=== PATIENT | male | born 1945 | race Caucasian/White ===

== ENCOUNTER 2020-06-14 10:57 | Outpatient (REF) | payer MEDICARE, OTHER, SELFPAY ==
[2020-06-14 11:30] LABS: MANUAL DIFF FLAG NO
[2020-06-14 11:47] LABS: Eosinophils Absolute Auto 0.3 X10*3/uL (0.0-0.4); Eosinophils Percent Auto 7.6 % (0-4); Hematocrit 43.8 % (42-52); Hemoglobin 14.1 g/dl (14.0-18.0); Imm Gran Abs Auto 0.01 X10*3/uL (0.00-0.03); Imm Gran Pct Auto 0.2 % (0.0-0.4); Lymphocytes Absolute Auto 1.3 X10*3/uL (1.2-4.9); Lymphocytes Percent Auto 31.2 % (20-40); Mean Corpuscular HGB Conc 32.2 g/dl (31.0-36.0); Mean Corpuscular Volume 93.2 fL (80-98); Mean Platelet Volume 11.4 fL (9.4-12.4); Monocytes Absolute Auto 0.5 X10*3/uL (0.1-1.2); Monocytes Percent Auto 12.7 % (2-11); Neutrophils Absolute Auto 1.9 X10*3/uL (2.0-8.3); Neutrophils Percent Auto 47.3 % (45-73); Platelet Count 159 X10*3/uL (160-400); Red Cell Distribution Width 14.5 % (11.0-16.0); White Blood Count 4.1 X10*3/uL (4.8-10.8)
[2020-06-14 12:19] LABS: Glucose Urine UA NEG (NEG); Leukocyte Esterase Urine NEG (NEG); Nitrite Urine NEG (NEG); Urine Blood NEG (NEG); Urine Ketones NEG (NEG); Urine Protein NEG (NEG-TRACE)
[2020-06-14 12:20] LABS: Alanine Aminotransferase 17 U/L (0-40); Albumin Level 4.2 g/dL (3.5-5.0); Alkaline Phosphatase 63 U/L (39-117); Anion Gap 13 (12-20); Aspartate Amino Transferase 22 U/L (5-37); Bilirubin Total 1.2 mg/dL (0.0-1.0); Blood Urea Nitrogen 12 mg/dL (9-16); Carbon Dioxide 28 mmol/L (22-29); Chloride 104 mmol/L (96-108); Cholesterol 215 mg/dL; Estimated Glomerular Filt Rate > 60; Glucose Fasting 86 mg/dL (60-99); HDL Cholesterol 73 mg/dL; LDL Cholesterol Calculated 126 mg/dl; Sodium 141 mmol/L (135-145); Total Protein 7.5 g/dL (6.5-8.0); Triglycerides 80 mg/dL
[2020-06-14 12:24] LABS: Appearance Urine CLEAR; Color Urine YELLOW
[2020-06-14 12:34] LABS: PSA,Total (Free>4and<10) 0.19 ng/mL (0.00-4.00)
== END 2020-06-14 10:58 | disposition home or self-care (01) ==
LOC: HO.LNP 10:57
PROVIDERS: PCP Internal Medicine; Visit Provider Internal Medicine
DX: R09.89 Other specified symptoms and signs involving the circulatory and respiratory systems (principal); I10 Essential (primary) hypertension; E78.00 Pure hypercholesterolemia, unspecified; Z12.5 Encounter for screening for malignant neoplasm of prostate
CPT/HCPCS: 80053; 80061; 81003; 84153; 85025

== ENCOUNTER 2021-06-02 10:50 | Outpatient (REF) | payer MEDICARE, OTHER, SELFPAY ==
--- NOTE | ~2021-06-02 | MR_ITS ---
EXAMINATION: MRI BRAIN WITHOUT CONTRAST CLINICAL INFORMATION: Facial and hand numbness. COMPARISON: No relevant prior imaging. TECHNIQUE: Multiplanar MR imaging of the brain was performed without contrast. FINDINGS: There are scattered foci of T2 FLAIR signal hyperintensity within the periventricular white matter that most likely represent a chronic manifestation of small vessel ischemia. No acute territorial infarct. No pathological magnetic susceptibility artifact. Intracranial vascular flow voids are grossly maintained. There is no intracranial mass effect or midline shift. No abnormal extra axial collection. Lateral and third ventricles are proportionate to the subarachnoid spaces. No hydrocephalus. Midline structures including the cervicomedullary junction are normal. No acute bone marrow signal changes. There is no mastoid or middle ear effusion. No active paranasal sinus disease. Globes and orbits are symmetric. MR/MR head/brain wo con IMPRESSION: There are scattered chronic small vessel ischemic changes within the periventricular white matter. Otherwise unremarkable examination. No evidence of acute territorial infarct or hemorrhage.
[2021-06-02 11:00] LABS: Blood Urea Nitrogen 13 mg/dL (9-16)
[2021-06-02 11:17] LABS: Estimated Glomerular Filt Rate > 60
== END 2021-06-02 10:51 | disposition home or self-care (01) ==
LOC: HO.MRI 10:50
PROVIDERS: PCP Internal Medicine; Visit Provider Internal Medicine
DX: Z01.812 Encounter for preprocedural laboratory examination (principal); R20.0 Anesthesia of skin; I10 Essential (primary) hypertension
CPT/HCPCS: 36415; 70551; 82565; 84520

== ENCOUNTER 2021-06-24 10:43 | Outpatient (REF) | payer MEDICARE, OTHER, SELFPAY ==
[2021-06-24 10:47] LABS: MANUAL DIFF FLAG NO
[2021-06-24 10:59] LABS: Basophils Absolute Auto 0.1 X10*3/uL (0.0-0.2); Basophils Percent Auto 1.1 % (0-2); Eosinophils Absolute Auto 0.4 X10*3/uL (0.0-0.4); Eosinophils Percent Auto 7.6 % (0-4); Hemoglobin 13.2 g/dl (14.0-18.0); Imm Gran Abs Auto 0.01 X10*3/uL (0.00-0.03); Imm Gran Pct Auto 0.2 % (0.0-0.4); Lymphocytes Absolute Auto 1.2 X10*3/uL (1.2-4.9); Lymphocytes Percent Auto 21.9 % (20-40); Mean Corpuscular Hemoglobin 30.5 pg (27.0-33.0); Mean Corpuscular Volume 92.4 fL (80.0-98.0); Mean Platelet Volume 11.1 fL (9.4-12.4); Monocytes Absolute Auto 0.8 X10*3/uL (0.1-1.2); Monocytes Percent Auto 14.7 % (2-11); Neutrophils Absolute Auto 2.9 x10*3/uL (2.0-8.3); Neutrophils Percent Auto 54.5 % (45-73); Platelet Count 188 X10*3/uL (160-400); Red Blood Count 4.33 X10*6/uL (4.60-5.80); Red Cell Distribution Width 13.8 % (11.0-16.0); White Blood Count 5.2 X10*3/uL (4.8-10.8)
[2021-06-24 11:00] LABS: Appearance Urine HAZY; Color Urine YELLOW; Glucose Urine UA NEG (NEG); Leukocyte Esterase Urine NEG (NEG); Nitrite Urine NEG (NEG); Urine Blood NEG (NEG); Urine Ketones NEG (NEG); Urine Protein NEG (NEG-TRACE)
[2021-06-24 11:13] LABS: Alanine Aminotransferase 16 U/L (0-40); Albumin Level 4.2 g/dL (3.5-5.0); Alkaline Phosphatase 60 U/L (39-117); Anion Gap 11 (12-20); Aspartate Amino Transferase 23 U/L (5-37); Bilirubin Total 1.5 mg/dL (0.0-1.0); Blood Urea Nitrogen 14 mg/dL (9-16); Calcium 9.3 mg/dL (8.4-10.2); Carbon Dioxide 27 mmol/L (22-29); Chloride 100 mmol/L (96-108); Cholesterol 208 mg/dL; Estimated Glomerular Filt Rate > 60; Glucose Fasting 86 mg/dL (60-99); HDL Cholesterol 75 mg/dL; LDL Cholesterol Calculated 122 mg/dl; Potassium 3.8 mmol/L (3.3-5.1); Sodium 134 mmol/L (135-145); Total Protein 7.3 g/dL (6.5-8.0); Triglycerides 57 mg/dL
[2021-06-24 11:28] LABS: PSA,Total (Free>4and<10) 0.19 ng/mL (0.00-4.00)
== END 2021-06-24 10:44 | disposition home or self-care (01) ==
LOC: HO.LNP 10:43
PROVIDERS: Visit Provider Internal Medicine
DX: Z12.5 Encounter for screening for malignant neoplasm of prostate (principal); E78.00 Pure hypercholesterolemia, unspecified; I10 Essential (primary) hypertension
CPT/HCPCS: 80053; 80061; 81003; 84153; 85025

== ENCOUNTER 2022-06-27 10:54 | Outpatient (REF) | payer MEDICARE, OTHER, SELFPAY ==
[2022-06-27 11:00] LABS: MANUAL DIFF FLAG NO
[2022-06-27 11:53] LABS: Appearance Urine Clear; Color Urine Yellow; Glucose Urine UA Negative (Negative); Leukocyte Esterase Urine Negative (Negative); Nitrite Urine Negative (Negative); PH 6.5 (5.0-9.0); Specific Gravity - Urine 1.015 (1.005-1.025); Urine Blood Negative (Negative); Urine Ketones Negative (Negative); Urine Protein Negative (Neg-Trace)
[2022-06-27 11:57] LABS: Bacteria Urine None Seen (None Seen); Hyaline Casts Urine 0-2 /LPF (0-2); RBC Urine 0-2 /HPF (0-2); Squamous Epithelial Cell Urine 0-2 /HPF (0-2); WBC Urine 0-5 /HPF (0-5)
[2022-06-27 12:02] LABS: Basophils Absolute Auto 0.1 X10*3/uL (0.0-0.2); Basophils Percent Auto 1.5 % (0-2); Eosinophils Absolute Auto 0.3 X10*3/uL (0.0-0.4); Eosinophils Percent Auto 7.1 % (0-4); Hematocrit 41.7 % (42.0-52.0); Hemoglobin 13.8 g/dl (14.0-18.0); Imm Gran Abs Auto 0.01 X10*3/uL (0.00-0.03); Imm Gran Pct Auto 0.3 % (0.0-0.4); Lymphocytes Percent Auto 25.8 % (20-40); Mean Corpuscular HGB Conc 33.1 g/dl (31.0-36.0); Mean Corpuscular Hemoglobin 29.5 pg (27.0-33.0); Mean Corpuscular Volume 89.1 fL (80.0-98.0); Mean Platelet Volume 10.9 fL (9.4-12.4); Monocytes Absolute Auto 0.6 X10*3/uL (0.1-1.2); Monocytes Percent Auto 15.9 % (2-11); Neutrophils Percent Auto 49.4 % (45-73); Platelet Count 182 X10*3/uL (160-400); Red Blood Count 4.68 X10*6/uL (4.60-5.80); Red Cell Distribution Width 14.5 % (11.0-16.0)
[2022-06-27 13:02] LABS: Alanine Aminotransferase 17 U/L (0-40); Albumin Level 4.1 g/dL (3.5-5.0); Alkaline Phosphatase 65 U/L (39-117); Anion Gap 12 (12-20); Aspartate Amino Transferase 24 U/L (5-37); Bilirubin Total 1.5 mg/dL (0.0-1.0); Blood Urea Nitrogen 12 mg/dL (9-16); Calcium 9.2 mg/dL (8.4-10.2); Carbon Dioxide 26 mmol/L (22-29); Chloride 101 mmol/L (96-108); Cholesterol 188 mg/dL; Estimated Glomerular Filt Rate > 60; Glucose Fasting 88 mg/dL (60-99); HDL Cholesterol 70 mg/dL; LDL Cholesterol Calculated 108 mg/dl; PSA,Total (Free>4and<10) 0.21 ng/mL (0.00-4.00); Potassium 4.4 mmol/L (3.3-5.1); Sodium 135 mmol/L (135-145); TSH reflex Free T4 4.81 uIU/mL (0.32-4.0); Total Protein 7.1 g/dL (6.5-8.0); Triglycerides 50 mg/dL
[2022-06-27 14:56] LABS: Free T4 (Free Thyroxine) 1.04 ng/dL (0.71-1.85)
== END 2022-06-27 10:55 | disposition home or self-care (01) ==
LOC: HO.LNP 10:54
PROVIDERS: Visit Provider Internal Medicine
DX: Z12.5 Encounter for screening for malignant neoplasm of prostate (principal); E78.00 Pure hypercholesterolemia, unspecified; I10 Essential (primary) hypertension
CPT/HCPCS: 80053; 80061; 81001; 84153; 84439; 84443; 85025

== ENCOUNTER → 2022-08-24 12:39 | Outpatient (BNVA) | payer MEDICARE, OTHER, SELFPAY | PROVIDERS: Visit Provider Internal Medicine | DX: I48.91 Unspecified atrial fibrillation (principal); I10 Essential (primary) hypertension | CPT/HCPCS: 93005; 99202 ==

== ENCOUNTER 2022-09-01 13:17 | Outpatient (REF) | payer MEDICARE, OTHER, SELFPAY ==
[2022-09-01 13:19] LABS: MANUAL DIFF FLAG NO
[2022-09-01 13:29] LABS: Basophils Absolute Auto 0.1 X10*3/uL (0.0-0.2); Basophils Percent Auto 1.4 % (0-2); Eosinophils Absolute Auto 0.2 X10*3/uL (0.0-0.4); Eosinophils Percent Auto 5.3 % (0-4); Hematocrit 40.3 % (42.0-52.0); Hemoglobin 13.3 g/dl (14.0-18.0); Imm Gran Abs Auto 0.01 X10*3/uL (0.00-0.03); Imm Gran Pct Auto 0.2 % (0.0-0.4); Lymphocytes Absolute Auto 0.9 X10*3/uL (1.2-4.9); Lymphocytes Percent Auto 20.8 % (20-40); Mean Corpuscular Hemoglobin 30.1 pg (27.0-33.0); Mean Corpuscular Volume 91.2 fL (80.0-98.0); Mean Platelet Volume 10.9 fL (9.4-12.4); Monocytes Absolute Auto 0.6 X10*3/uL (0.1-1.2); Monocytes Percent Auto 14.2 % (2-11); Neutrophils Absolute Auto 2.6 x10*3/uL (2.0-8.3); Neutrophils Percent Auto 58.1 % (45-73); Platelet Count 156 X10*3/uL (160-400); Red Blood Count 4.42 X10*6/uL (4.60-5.80); Red Cell Distribution Width 14.6 % (11.0-16.0); White Blood Count 4.4 X10*3/uL (4.8-10.8)
== END 2022-09-01 13:18 | disposition home or self-care (01) ==
LOC: HO.LNP 13:17
PROVIDERS: Visit Provider Internal Medicine
DX: D72.821 Monocytosis (symptomatic) (principal)
CPT/HCPCS: 85025

== ENCOUNTER → 2022-09-20 12:54 | Outpatient (REF) | payer MEDICARE, OTHER, SELFPAY ==
--- NOTE | 2022-09-20 12:58 | CA_ITS ---
Transthoracic Echocardiogram Patient (Last, First, Middle): Kevin Neil P Gender: Male Date of : 1945 Age: 77 Procedure Date: 09/20/2022 Procedure Type: Transthoracic Echocardiogram Location: OP Height: 205.74 cm Weight: 65.77 kg BSA: 2.02 m2 Heart Rate: 83 bpm BP: 124 / 70 mmHg Cotton Ball Machine Tender: SB Referring MD: Jean Pierre Clinton MD Symptoms: I48.91 - Unspecified atrial fibrillation Study Quality: Adequate ECG Rhythm: Atrial Fibrillation Conclusions: - The left ventricular systolic function is normal. The visually estimated ejection fraction is between 65-70%. - No obvious valvular pathology seen on this study. Findings Left Ventricle Normal left ventricular cavity size. There is normal left ventricular wall thickness. The left ventricular systolic function is normal. The visually estimated ejection fraction is between 65-70%. There is no evidence of regional wall motion abnormalities. Diastolic function is indeterminate on the basis of available data. Right Ventricle Normal right ventricular cavity size and systolic function. Atria The left atrium is normal in size. The right atrium is mildly dilated. Aortic Valve There is a normal trileaflet aortic valve. There is no aortic valve stenosis. There is no aortic valve regurgitation. Mitral Valve The mitral valve appears normal. There is no mitral valve regurgitation. There is no mitral valve stenosis. Pulmonic Valve The pulmonic valve is likely normal. Tricuspid Valve There is mild tricuspid valve regurgitation. Mild pulmonary hypertension is present. Great Vessels The asc aorta is normal in size. Venous The inferior vena cava is mildly dilated and collapses less than 50% with inspiration. Pericardium/Pleural There is no evidence of pericardial effusion. Prior Study Comparison No significant change compared to prior study dated: 04/13/2017. Recommendations, Care & Conclusions No obvious valvular pathology seen on this study. Measurements 2D Linear Measurements IVSd: 0.65 0.6-0.9/0.6-1.0 cm LVIDd: 3.63 3.9-5.3/4.2-5.9 cm LVIDd Index: 1.80 2.4-3.2/2.2-3.1 cm/m2 LVIDs: 2.15 2.0-3.6 cm LVPWd: 0.70 0.7-1.1 cm LA Diam: 3.70 2.7-3.8/3.0-4.0 cm LAIDs Index: 1.83 1.5-2.3 cm/m2 LV Mass: 79.17 67-162/88-224 g LV Mass Index: 39.19 43-95/49-115 g/m2 LVOT Diam: 2.00 3.0+(-)1.3 cm 2D Systolic Function EF 4C: 70.00 >55% EF 2C: 69.00 >55% EF BiP: 69.60 >55% Mitral Valve MV Pk E: 1.20 MV Decel Time: 165.00 E'Lateral: 10.10 E'Medial: 7.49 E/E' Med: 16.00 E/E' Lat: 11.90 Aortic Valve AoV Pk Kobe: 1.14 AoV Pk Grad: 5.00 IVY: 3.08 LVOT LVOT Pk Kobe: 1.12 LVOT Mn Kobe: 0.74 LVOT VTI: 0.21 LVOT Pk Grad: 5.00 LVOT Mn Grad: 3.00 LVOT Diam: 2.00 LVOT Area: 3.14 Diastolic Function MV Pk E: 1.20 E'Medial: 7.49 E/E' Med: 16.00 E' Laterial: 10.10 E/E' Lat: 11.90 Right Ventricle TAPSE (mm): 16.50 TVS' Kobe: 14.70 Tricuspid Valve TR Pk Kobe: 2.53 TR Pk Grad: 26.00 RA Press: 15.00 RVSP: 41.00 Great Vessels Aorta Sinus of Valsalva: 3.10 2.0-3.5 cm Ao Asc: 3.20 2.1-3.4 cm Pulmonary Valve PV Pk Kobe: 1.00 Peak PV Grad: 4.00 Updated in Other Vendor System with Status of Final Jean Pierre Clinton MD electronically signed on 09/21/2022 12:49:58 PM with status of Final
--- NOTE | 2022-09-20 12:58 | HM_ITS ---
* Total monitoring time 3 days. * Underlying rhythm is atrial fibrillation. Average ventricular rate 64/Min. Range 44 to 106/Min. * Rare PVCs. * Rare pauses; longest 2.7 seconds during sleep hours. * Patient diary with symptoms of chest discomfort, left-sided pain which correlates with controlled atrial fibrillation. * Overall, well controlled atrial fibrillation. MTDD
== END ==
LOC: HO.CARD 12:54
PROVIDERS: PCP Internal Medicine; Visit Provider Internal Medicine
DX: I48.91 Unspecified atrial fibrillation (principal)
CPT/HCPCS: 93242; 93306

== ENCOUNTER → 2022-09-20 12:58 | Outpatient (BNV) | payer MEDICARE, OTHER, SELFPAY | PROVIDERS: PCP Internal Medicine; Visit Provider Internal Medicine | DX: I48.91 Unspecified atrial fibrillation (principal) | CPT/HCPCS: 93244; 93306 ==

== ENCOUNTER 2022-12-14 15:18 | Outpatient (AMB) | payer MEDICARE, OTHER, SELFPAY ==
[2022-12-14 15:32] VITALS: BP 140/82; PULSE 74; BMI 20.6
--- NOTE | 2022-12-14 15:32 | A.OFFVIS_ITS ---
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 Today he reports he is noticing less heart bed palpitations now that he is on the metoprolol. He overall feels well with no concerning symptoms. He denies fatigue, shortness of breath, racing heart with activities. No chest discomfort at rest or with activity. No presyncope, syncope, falls. No PND, orthopnea or edema. He reports some coldness to his hands. He is mostly sedentary. He does have to climb some stairs in his home which he tolerates well. Lives with his who has MS. ALBERTO Medical History Essential hypertension Surgical History Hx of tonsillectomy Family History Father CHF (congestive heart failure) Mother Stroke Social History Alcohol intake: current Alcohol intake frequency: holidays/special occasions only Patient Tobacco Use Status: Former Tobacco user Quit Date: age of 19years Years Smoked: 2 +/- Review of Systems Const All systems reviewed & are unremarkable except as noted in HPI and below ENT Denies dizziness Card Denies chest pain, Denies chest pain at rest, Denies chest pain with activity, Denies rapid heart rate, Denies pedal edema, Denies edema, Denies leg edema, Denies lightheadedness, Denies palpitations, Denies dyspnea, Denies dyspnea on exertion and Denies orthopnea Resp Denies cough, Denies dyspnea and Denies dyspnea on exertion GI Denies hematochezia and Denies change in stool character Musc Denies abnormal gait, Denies limited range of motion, Denies muscle cramps, Denies muscle weakness, Denies numbness, Denies radiating pain into limb, Denies stiffness and Denies tingling Neuro Denies abnormal gait, Denies dizziness, Denies numbness and Denies tingling Endo Denies palpitations Physical Exam Vital Signs: Last Vital Signs Pulse 74 12/14/22 15:32 BP 140/82 H 12/14/22 15:32 BMI result Body Mass Index 20.6 Const General: cooperative, healthy appearing, comfortable and no acute distress Orientation/consciousness: patient oriented x3 Neck Neck: Yes normal visual inspection Resp Effort & Inspection: normal respiratory effort Auscultation: clear to auscultation bilaterally, no crackles, no rales, no rhonchi and no wheezes Cardio Jugular venous distension: no JVD Rate: regular rate Rhythm: abnormal rhythm Heart sounds: S1 normal heart sound present, S2 normal heart sound present, no murmurs and no rubs Neuro General: patient oriented x3 Extrem General: Yes normal to inspection and No no pedal edema Psych Appearance: grossly normal Mental Status: mental status grossly normal Speech and movement: Normal speech and movement present Assessment & Plan Assessment & Plan (1) Persistent atrial fibrillation: Code(s): I48.19 - Other persistent atrial fibrillation Plan: Newer, incidental finding of atrial fibrillation. Patient primarily asymptomatic. He could feel some palpitations which did improve after starting metoprolol. He is currently being treated with heart rate control. He was started on Eliquis for anticoagulation. No bleeding issues reported. An echocardiogram was done 09/20/2022 showing EF 65-70%, no valve abnormalities and no regional wall motion abnormalities. Holter monitor done 09/20/2022 for 3 days shows atrial fibrillation with average heart rate 64, heart rate range 44 to 106, longest pause 2.7 seconds during sleep hours, overall well controlled rate. Today he continues to deny fatigue, shortness of breath, palpitations. He admits to being mostly sedentary. Will continue with rate control strategy as he is tolerating this. Continue metoprolol XL 50 mg daily. Continue Eliquis 5 mg b.i.d. cardiology follow-up in 6 months, sooner if needed (2) Essential hypertension: Code(s): I10 - Essential (primary) hypertension Plan: Adequately controlled at present. Continue metoprolol. Low-salt diet reviewed. Coding Level of Care Code Est Pt Level 3 (80471) Diagnoses Persistent atrial fibrillation I48.19 Essential hypertension I10 Time Spent (min) 24
== END 2022-12-14 16:00 | disposition home or self-care (01) ==
PROVIDERS: PCP Internal Medicine; Visit Provider Nurse Practitioner Family
DX: I48.19 Other persistent atrial fibrillation (principal); I10 Essential (primary) hypertension
CPT/HCPCS: 99213

== ENCOUNTER → 2022-12-14 15:18 | Outpatient (BNVA) | payer MEDICARE, OTHER, SELFPAY | PROVIDERS: PCP Internal Medicine; Visit Provider Nurse Practitioner Family | DX: I48.19 Other persistent atrial fibrillation (principal); I10 Essential (primary) hypertension; Z79.01 Long term (current) use of anticoagulants; Z79.899 Other long term (current) drug therapy | CPT/HCPCS: 99212 ==

== ENCOUNTER 2023-06-25 13:50 | Outpatient (AMB) | payer MEDICARE, OTHER, SELFPAY ==
--- NOTE | 2023-06-25 14:07 | A.OFFVIS_ITS ---
Vital Signs 06/25/23 14:08 Height 5 ft 9 in Weight 147 lb 4.301 oz BMI 21.7 BP 134/82 Blood Pressure Location Lt brachial Position Sitting Pulse 71 Pulse Source Pulse Oximeter Intake Visit Reasons: 6 month follow up Stoker Installer Required: No Allergies contrast dye Adverse Reaction (Intermediate, Uncoded 06/25/23 14:10) Rash Medication List - Last Reconciled 06/25/23 by Funmilayo Recinos, BERNADETTE-C apixaban (Eliquis) 5 mg PO BID furosemide 20 mg PO DAILY metoprolol succinate ER (Toprol XL) 50 mg PO DAILY HPI HPI 6 month follow up: Details: Kevin is a 78-year-old male with past medical history of hypertension, persistent atrial fibrillation who presents for follow-up. Today he reports he has been feeling well with no concerning symptoms. He denies having heart palpitations. No chest discomfort at rest or with activity. No shortness of breath, PND, orthopnea or edema. No presyncope, syncope, falls. He reports good activity tolerance. No bleeding issues reported. Takes meds as directed. He is upcoming visit for labs and with his PCP. [facility] Medical History Essential hypertension Surgical History Hx of tonsillectomy Family History Father CHF (congestive heart failure) Mother Stroke Social History Alcohol intake: current Alcohol intake frequency: holidays/special occasions only Patient Tobacco Use Status: Former Tobacco user Quit Date: age of 19years Years Smoked: 2 +/- Review of Systems Const All systems reviewed & are unremarkable except as noted in HPI and below ENT Denies dizziness Card Denies chest pain, Denies chest pain at rest, Denies chest pain with activity, Denies rapid heart rate, Denies pedal edema, Denies edema, Denies leg edema, Denies lightheadedness, Denies palpitations, Denies dyspnea, Denies dyspnea on exertion and Denies orthopnea Resp Denies cough, Denies dyspnea and Denies dyspnea on exertion GI Denies hematochezia and Denies change in stool character Musc Denies abnormal gait, Denies limited range of motion, Denies muscle cramps, Denies muscle weakness, Denies numbness, Denies radiating pain into limb, Denies stiffness and Denies tingling Neuro Denies abnormal gait, Denies dizziness, Denies numbness and Denies tingling Endo Denies palpitations Physical Exam Vital Signs: Last Vital Signs Pulse 71 06/25/23 14:08 BP 134/82 06/25/23 14:08 BMI result Body Mass Index 21.7 Const General: cooperative, healthy appearing, comfortable and no acute distress Orientation/consciousness: patient oriented x3 Neck Neck: Yes normal visual inspection Resp Effort & Inspection: normal respiratory effort Auscultation: clear to auscultation bilaterally, no crackles, no rales, no rhonchi and no wheezes Cardio Jugular venous distension: no JVD Rate: regular rate Rhythm: abnormal rhythm Heart sounds: S1 normal heart sound present, S2 normal heart sound present, no murmurs and no rubs Neuro General: patient oriented x3 Extrem General: Yes normal to inspection and No no pedal edema Psych Appearance: grossly normal Mental Status: mental status grossly normal Speech and movement: Normal speech and movement present Assessment & Plan Assessment & Plan (1) Persistent atrial fibrillation: Code(s): I48.19 - Other persistent atrial fibrillation Category: Medical Plan: Newer, incidental finding of atrial fibrillation in 2022. Patient has been primarily asymptomatic. He initially could feel some palpitations which did improve after starting metoprolol. He is currently being treated with heart rate control. He was started on Eliquis for anticoagulation. No bleeding issues reported. An echocardiogram was done 09/20/2022 showing EF 65-70%, no valve abnormalities and no regional wall motion abnormalities. Holter monitor done 09/20/2022 for 3 days shows atrial fibrillation with average heart rate 64, heart rate range 44 to 106, longest pause 2.7 seconds during sleep hours, over all well controlled rate. Today he continues to feel well with no concerning symptoms. He is pleased with the way he is feeling. Discussed pursuing rhythm control and he declines stating he is good the way he is. Will continue with rate control strategy as he is tolerating and prefers this. Continue metoprolol XL 50 mg daily. Continue Eliquis 5 mg b.i.d. labs being done by his PCP in the near future. cardiology follow-up in 6 months, sooner if needed (2) Essential hypertension: Code(s): I10 - Essential (primary) hypertension Category: Medical Plan: Adequately controlled at present. Continue metoprolol. Low-salt diet reviewed. Plan Time spent on chart review, documentation, interview and assessment
[2023-06-25 14:08] VITALS: BP 134/82; PULSE 71; BMI 21.7
== END 2023-06-25 14:46 | disposition home or self-care (01) ==
LOC: HO.HCS 13:50
PROVIDERS: PCP Internal Medicine; Visit Provider Nurse Practitioner Family
DX: I48.19 Other persistent atrial fibrillation (principal); I10 Essential (primary) hypertension
CPT/HCPCS: 99213

== ENCOUNTER → 2023-06-25 13:50 | Outpatient (BNVA) | payer MEDICARE, OTHER, SELFPAY | PROVIDERS: PCP Internal Medicine; Visit Provider Nurse Practitioner Family | DX: I48.19 Other persistent atrial fibrillation (principal); I10 Essential (primary) hypertension; Z79.01 Long term (current) use of anticoagulants | CPT/HCPCS: 99212 ==

== ENCOUNTER 2023-06-29 11:16 | Outpatient (REF) | payer MEDICARE, OTHER, SELFPAY ==
[2023-06-29 11:20] LABS: MANUAL DIFF FLAG NO
[2023-06-29 11:55] LABS: Basophils Absolute Auto 0.1 X10*3/uL (0.0-0.2); Basophils Percent Auto 1.5 % (0-2); Eosinophils Absolute Auto 0.4 X10*3/uL (0.0-0.4); Eosinophils Percent Auto 8.6 % (0-4); Imm Gran Abs Auto 0.01 X10*3/uL (0.00-0.03); Imm Gran Pct Auto 0.2 % (0.0-0.4); Lymphocytes Percent Auto 24.9 % (20-40); Mean Corpuscular HGB Conc 34.1 g/dl (31.0-36.0); Mean Corpuscular Hemoglobin 30.8 pg (27.0-33.0); Mean Corpuscular Volume 90.1 fL (80.0-98.0); Mean Platelet Volume 10.9 fL (9.4-12.4); Monocytes Absolute Auto 0.6 X10*3/uL (0.1-1.2); Monocytes Percent Auto 15.8 % (2-11); Platelet Count 142 X10*3/uL (160-400); Red Blood Count 4.55 X10*6/uL (4.60-5.80); Red Cell Distribution Width 14.1 % (11.0-16.0); White Blood Count 4.1 X10*3/uL (4.8-10.8)
[2023-06-29 11:56] LABS: Appearance Urine Clear; Color Urine Yellow; Glucose Urine UA Negative (Negative); Leukocyte Esterase Urine Negative (Negative); Nitrite Urine Negative (Negative); PH 7.5 (5.0-9.0); Urine Blood Negative (Negative); Urine Ketones Negative (Negative); Urine Protein Negative (Neg-Trace)
[2023-06-29 11:59] LABS: Bacteria Urine None Seen (None Seen); Hyaline Casts Urine 0-2 /LPF (0-2); RBC Urine 0-2 /HPF (0-2); Squamous Epithelial Cell Urine 0-2 /HPF (0-2); WBC Urine 0-5 /HPF (0-5)
[2023-06-29 12:45] LABS: Alanine Aminotransferase 21 U/L (0-40); Alkaline Phosphatase 66 U/L (39-117); Anion Gap 9 (12-20); Aspartate Amino Transferase 29 U/L (5-37); Bilirubin Total 1.7 mg/dL (0.0-1.0); Blood Urea Nitrogen 13 mg/dL (9-16); Calcium 9.2 mg/dL (8.4-10.2); Carbon Dioxide 28 mmol/L (22-29); Chloride 100 mmol/L (96-108); Cholesterol 172 mg/dL (<200); Estimated Glomerular Filt Rate > 60; Glucose Fasting 90 mg/dL (60-99); HDL Cholesterol 65 mg/dL (>40); LDL Cholesterol Calculated 96 mg/dL (<100); Potassium 4.1 mmol/L (3.3-5.1); Sodium 133 mmol/L (135-145); Total Protein 7.7 g/dL (6.5-8.0); Triglycerides 57 mg/dL (<150)
[2023-06-29 13:00] LABS: PSA,Total (Free>4and<10) 0.13 ng/mL (0.00-4.00)
== END 2023-06-29 11:17 | disposition home or self-care (01) ==
LOC: HO.LNP 11:16
PROVIDERS: Visit Provider Internal Medicine
DX: Z12.5 Encounter for screening for malignant neoplasm of prostate (principal); E78.00 Pure hypercholesterolemia, unspecified; I10 Essential (primary) hypertension; N40.0 Benign prostatic hyperplasia without lower urinary tract symptoms; D72.821 Monocytosis (symptomatic)
CPT/HCPCS: 80053; 80061; 81001; 84153; 85025

== ENCOUNTER 2023-10-05 11:12 | Outpatient (REF) | payer MEDICARE, OTHER, SELFPAY ==
[2023-10-05 11:17] LABS: MANUAL DIFF FLAG NO
[2023-10-05 11:49] LABS: Basophils Absolute Auto 0.1 X10*3/uL (0.0-0.2); Basophils Percent Auto 1.5 % (0-2); Eosinophils Absolute Auto 0.4 X10*3/uL (0.0-0.4); Eosinophils Percent Auto 8.8 % (0-4); Hematocrit 37.7 % (42.0-52.0); Imm Gran Abs Auto 0.01 X10*3/uL (0.00-0.03); Imm Gran Pct Auto 0.2 % (0.0-0.4); Lymphocytes Percent Auto 22.3 % (20-40); Mean Corpuscular HGB Conc 34.5 g/dl (31.0-36.0); Mean Corpuscular Hemoglobin 31.6 pg (27.0-33.0); Mean Corpuscular Volume 91.7 fL (80.0-98.0); Monocytes Absolute Auto 0.8 X10*3/uL (0.1-1.2); Monocytes Percent Auto 17.3 % (2-11); Neutrophils Absolute Auto 2.3 x10*3/uL (2.0-8.3); Neutrophils Percent Auto 49.9 % (45-73); Platelet Count 139 X10*3/uL (160-400); Red Blood Count 4.11 X10*6/uL (4.60-5.80); Red Cell Distribution Width 14.6 % (11.0-16.0); White Blood Count 4.5 X10*3/uL (4.8-10.8)
== END 2023-10-05 11:13 | disposition home or self-care (01) ==
LOC: HO.LNP 11:12
PROVIDERS: Visit Provider Internal Medicine
DX: D69.6 Thrombocytopenia, unspecified (principal)
CPT/HCPCS: 85025

== ENCOUNTER 2023-11-09 10:59 | Outpatient (REF) | payer MEDICARE, OTHER, SELFPAY ==
[2023-11-09 11:06] LABS: MANUAL DIFF FLAG NO
[2023-11-09 11:08] LABS: Basophils Absolute Auto 0.1 X10*3/uL (0.0-0.2); Basophils Percent Auto 1.7 % (0-2); Eosinophils Absolute Auto 0.4 X10*3/uL (0.0-0.4); Eosinophils Percent Auto 8.7 % (0-4); Hematocrit 38.5 % (42.0-52.0); Hemoglobin 13.3 g/dl (14.0-18.0); Imm Gran Abs Auto 0.01 X10*3/uL (0.00-0.03); Imm Gran Pct Auto 0.2 % (0.0-0.4); Lymphocytes Percent Auto 22.9 % (20-40); Mean Corpuscular HGB Conc 34.5 g/dl (31.0-36.0); Mean Corpuscular Volume 92.5 fL (80.0-98.0); Mean Platelet Volume 10.9 fL (9.4-12.4); Monocytes Absolute Auto 0.7 X10*3/uL (0.1-1.2); Monocytes Percent Auto 17.6 % (2-11); Neutrophils Percent Auto 48.9 % (45-73); Platelet Count 142 X10*3/uL (160-400); Red Blood Count 4.16 X10*6/uL (4.60-5.80); Red Cell Distribution Width 14.6 % (11.0-16.0); White Blood Count 4.2 X10*3/uL (4.8-10.8)
== END 2023-11-09 11:00 | disposition home or self-care (01) ==
LOC: HO.LNP 10:59
PROVIDERS: Visit Provider Internal Medicine
DX: D69.6 Thrombocytopenia, unspecified (principal)
CPT/HCPCS: 85025

== ENCOUNTER 2023-12-27 14:32 | Outpatient (AMB) | payer MEDICARE, OTHER, SELFPAY ==
[2023-12-27 14:36] VITALS: BP 124/70; PULSE 78; BMI 21.5
--- NOTE | 2023-12-27 14:36 | MHC.OFFVIS ---
Vital Signs 12/27/23 14:36 Height 5 ft 9 in Weight 145 lb 8.081 oz BMI 21.5 BP 124/70 Blood Pressure Location Lt brachial Position Sitting Pulse 78 Pulse Source Monitor Intake Visit Reasons: 6 mth f/up Consulting Technical Manager Required: No Accompanied by: Self / Same As Patient Allergies contrast dye Adverse Reaction (Intermediate, Uncoded 06/25/23 14:10) Rash Medication List - Last Reconciled 12/27/23 by Jean Pierre Clinton MD apixaban (Eliquis) 5 mg PO BID furosemide 20 mg PO DAILY metoprolol succinate ER (Toprol XL) 50 mg PO DAILY HPI Comments Details: Kevin returns for follow-up. In the past, he was seen regarding atrial fibrillation. He had an EKG at the primary care physician's office that showed atrial fibrillation. Prior to that, he had had some chest fluttering but these days he has got no symptoms. Per notes, he was on valsartan for blood pressure but not taking it anymore. Otherwise, he states he feels fine. He does not get any exertional anginal-type symptoms. No other clear-cut cardiac symptoms. Getting along okay. [facility] Medical History Essential hypertension Surgical History Hx of tonsillectomy Family History Father CHF (congestive heart failure) Mother Stroke Social History Alcohol intake: current Alcohol intake frequency: holidays/special occasions only Patient Tobacco Use Status: Former Tobacco user Years Smoked: 2 +/- Review of Systems Const Denies chills, Denies fatigue, Denies fever(s), Denies frequent falls, Denies weakness, Denies weight gain and Denies weight loss ENT Denies dizziness Card Denies chest pain, Denies leg edema, Denies lightheadedness, Denies palpitations, Denies dyspnea and Denies dyspnea on exertion Resp Denies cough, Denies dyspnea and Denies dyspnea on exertion GI Denies hematochezia Musc Denies abnormal gait, Denies muscle weakness, Denies numbness, Denies radiating pain into limb and Denies tingling Neuro Denies abnormal gait, Denies dizziness, Denies frequent falls, Denies numbness, Denies tingling and Denies weakness Endo Denies fatigue and Denies palpitations Physical Exam Vital Signs: Last Vital Signs Pulse 78 12/27/23 14:36 BP 124/70 12/27/23 14:36 BMI result Body Mass Index 21.5 Const General: comfortable and no acute distress Orientation/consciousness: patient oriented x3 HEENT Other: Unremarkable Head: Yes normal to inspection Neck Neck: Yes normal visual inspection Chest Chest palpation & inspection: normal inspection of the chest Resp Auscultation: clear to auscultation bilaterally Cardio Palpation: normal PMI Heart sounds: S1 normal heart sound present, S2 normal heart sound present, no gallops, no murmurs and no rubs GI Palpation (GI): Soft to palpation Back/Spine/Pelvis Other: unremarkable Skin General skin exam: no rashes or lesions noted Neuro General: patient oriented x3 Extrem General: Yes normal to inspection Psych Mental Status: mental status grossly normal Office Procedures EKG Details: EKG with atrial fibrillation at 78/Min; PVC versus aberrant conduction. [id number], Complete Assessment & Plan Assessment & Plan (1) Atrial fibrillation by electrocardiogram: Code(s): I48.91 - Unspecified atrial fibrillation Category: Medical Plan: Echocardiogram with LVEF of 65-70%. No significant valvular findings. In the Holter monitor, underlying rhythm is atrial fibrillation with good rate control; average heart rate of 64/Min. Overall, well controlled atrial fibrillation. Continue metoprolol/Eliquis. (2) Essential hypertension: Code(s): I10 - Essential (primary) hypertension Category: Medical Plan: Previously, on valsartan. Not in his list anymore. Anyway, blood pressure seems stable. Coding Level of Care Code Est Pt Level 3 (66174) Diagnoses Atrial fibrillation by electrocardiogram I48.91 Essential hypertension I10 CPT Codes EKG - CPT: 67746-Mbjytgmvjnzyracdx, Complete ([id number])
== END 2023-12-27 15:03 | disposition home or self-care (01) ==
PROVIDERS: PCP Internal Medicine; Visit Provider Internal Medicine
DX: I48.91 Unspecified atrial fibrillation (principal); I10 Essential (primary) hypertension
CPT/HCPCS: 93010; 99213

== ENCOUNTER → 2023-12-27 14:32 | Outpatient (BNVA) | payer MEDICARE, OTHER, SELFPAY | PROVIDERS: PCP Internal Medicine; Visit Provider Internal Medicine | DX: I48.91 Unspecified atrial fibrillation (principal); I10 Essential (primary) hypertension | CPT/HCPCS: 93005; 99212 ==

== ENCOUNTER 2024-01-10 13:10 | Outpatient (REF) | payer MEDICARE, OTHER, SELFPAY ==
[2024-01-10 13:37] LABS: Appearance Urine Clear; Color Urine Yellow; Glucose Urine UA Negative (Negative); Leukocyte Esterase Urine Negative (Negative); Nitrite Urine Negative (Negative); PH 5.5 (5.0-9.0); Specific Gravity - Urine <= 1.005 (1.005-1.025); Urine Blood Negative (Negative); Urine Ketones Negative (Negative); Urine Protein Negative (Neg-Trace)
[2024-01-10 13:47] LABS: Bacteria Urine None Seen (None Seen); Hyaline Casts Urine 0-2 /LPF (0-2); RBC Urine 0-2 /HPF (0-2); Squamous Epithelial Cell Urine 0-2 /HPF (0-2); WBC Urine 0-5 /HPF (0-5)
== END 2024-01-10 13:11 | disposition home or self-care (01) ==
LOC: HO.LNP 13:10
PROVIDERS: Visit Provider Internal Medicine
DX: R10.30 Lower abdominal pain, unspecified (principal)
CPT/HCPCS: 81001; 87086

== ENCOUNTER 2024-01-11 10:47 | Outpatient (REF) | payer MEDICARE, OTHER, SELFPAY ==
[2024-01-11 11:58] LABS: Blood Urea Nitrogen 12 mg/dL (9-16); Estimated Glomerular Filt Rate > 60
== END 2024-01-11 10:48 | disposition home or self-care (01) ==
LOC: HO.LNP 10:47
PROVIDERS: Visit Provider Internal Medicine
DX: Z01.812 Encounter for preprocedural laboratory examination (principal)
CPT/HCPCS: 82565; 84520

== ENCOUNTER 2024-07-03 10:41 | Outpatient (REF) | payer MEDICARE, OTHER, SELFPAY ==
[2024-07-03 10:45] LABS: MANUAL DIFF FLAG NO
[2024-07-03 10:52] LABS: Basophils Absolute Auto 0.1 X10*3/uL (0.0-0.2); Basophils Percent Auto 1.2 % (0-2); Eosinophils Absolute Auto 0.6 X10*3/uL (0.0-0.4); Eosinophils Percent Auto 11.6 % (0-4); Hemoglobin 13.3 g/dl (14.0-18.0); Imm Gran Abs Auto 0.01 X10*3/uL (0.00-0.03); Imm Gran Pct Auto 0.2 % (0.0-0.4); Lymphocytes Percent Auto 20.5 % (20-40); Mean Corpuscular HGB Conc 34.1 g/dl (31.0-36.0); Mean Corpuscular Hemoglobin 31.5 pg (27.0-33.0); Mean Corpuscular Volume 92.4 fL (80.0-98.0); Mean Platelet Volume 10.7 fL (9.4-12.4); Monocytes Absolute Auto 0.8 X10*3/uL (0.1-1.2); Monocytes Percent Auto 16.8 % (2-11); Neutrophils Absolute Auto 2.4 x10*3/uL (2.0-8.3); Neutrophils Percent Auto 49.7 % (45-73); Platelet Count 166 X10*3/uL (160-400); Red Blood Count 4.22 X10*6/uL (4.60-5.80); Red Cell Distribution Width 14.4 % (11.0-16.0); White Blood Count 4.8 X10*3/uL (4.8-10.8)
[2024-07-03 11:06] LABS: Appearance Urine Clear; Color Urine Yellow; Glucose Urine UA Negative (Negative); Leukocyte Esterase Urine Negative (Negative); Nitrite Urine Negative (Negative); Specific Gravity - Urine 1.015 (1.005-1.025); Urine Blood Negative (Negative); Urine Ketones Negative (Negative); Urine Protein Negative (Neg-Trace)
[2024-07-03 11:11] LABS: Bacteria Urine None Seen (None Seen); Hyaline Casts Urine 0-2 /LPF (0-2); RBC Urine 0-2 /HPF (0-2); Squamous Epithelial Cell Urine 0-2 /HPF (0-2); WBC Urine 0-5 /HPF (0-5)
[2024-07-03 11:27] LABS: Alanine Aminotransferase 22 U/L (0-40); Albumin Level 3.9 g/dL (3.5-5.0); Alkaline Phosphatase 67 U/L (39-117); Anion Gap 12 (12-20); Aspartate Amino Transferase 34 U/L (5-37); Bilirubin Total 1.3 mg/dL (0.0-1.0); Blood Urea Nitrogen 14 mg/dL (9-16); Calcium 9.2 mg/dL (8.4-10.2); Carbon Dioxide 25 mmol/L (22-29); Chloride 101 mmol/L (96-108); Cholesterol 175 mg/dL (<200); Estimated Glomerular Filt Rate > 60; Glucose Fasting 87 mg/dL (60-99); HDL Cholesterol 65 mg/dL (>40); LDL Cholesterol Calculated 100 mg/dL (<100); Sodium 134 mmol/L (135-145); Total Protein 7.2 g/dL (6.5-8.0); Triglycerides 53 mg/dL (<150)
== END 2024-07-03 10:42 | disposition home or self-care (01) ==
LOC: HO.LNP 10:41
PROVIDERS: Visit Provider Internal Medicine
DX: Z12.5 Encounter for screening for malignant neoplasm of prostate (principal); E78.00 Pure hypercholesterolemia, unspecified; I10 Essential (primary) hypertension; N40.0 Benign prostatic hyperplasia without lower urinary tract symptoms; D69.6 Thrombocytopenia, unspecified
CPT/HCPCS: 80053; 80061; 81001; 84153; 85025

== ENCOUNTER 2024-12-25 14:07 | Outpatient (AMB) | payer MEDICARE, OTHER, SELFPAY ==
--- OUTSIDE RECORDS SUMMARY | 2023-10-05 03:15 | XMS_ITS ---
Author Organization Israel Godoy MD Address [address] [place], [place] [phone] Care Team Providers Care Mixer Wet Pour Name Role Phone Israel Godoy Primary Care Provider Results Component Value Reference Range Notes Complete Blood Count Auto Di ff Reviewed date:10/05/2023 12:57:23 PM Interpretation: Performing Lab:[facility], [address] [place] [phone] Notes/Report: White Blood Count 4.5 4.8-10.8 X10*3/uL [...] Location Date Provider Diagnosis Israel Godoy MD [address] [place] [phone] 10/05/2023 Israel Godoy Thrombocytopenia D69 .6 Assessments Encounter Date Diagnosis (ICD Code) Assessment Notes Treatment Notes Treatment Clinical Notes Section Notes 10/05/2023 Thrombocytopenia (ICD-10 - D69.6) Plan Of Treatment Next Appt Details Provider Name:Israel Cortez ier, 01/12/2025 09:00:00 AM, [address] [place] [address], [phone], Provider Name:Israel Cortez ier, 07/06/2025 07:15:00 AM, [address] [place] [address], [phone], Provider Name:Israel Cortez ier, 07/13/2025 09:30:00 AM, [address] [place] [address], [phone], Progress Notes * Kevin NEIL PDOB:[birth year] (79 yo M)Acc No.[id number]:10/05/2023 Progress Note Patient: Kevin LAW Provider: Arturo Godoy MD :1945 A ge:78 Y S ex:Male Date:10/05/2023 Address:[address] [place], [place] [phone] Subjective: * Chief Complaints: * 1 . [...] 0 10/05/2023 Generated for Latha juarez/Jim/Jt on: 05:57 PM EDT
--- OUTSIDE RECORDS SUMMARY | 2023-10-28 16:13 | XMS_ITS ---
Author Organization Israel Godoy MD Address [address] [place] [phone] Care Team Providers Care Court Worker Name Role Phone Israel Godoy Primary Care Provider REASON FOR VISIT New Refill Request Medications Medication SIG (Take, Route, Frequency, Duration) Notes Start Date End Date Status Eliquis 5 MG TAKE 1 TABLET BY JAMES TH TWICE A DAY Orally twice a day for 30 days A ctive Encounters Encounter Location Date Provider Diagnosis Israel Godoy MD [address] [place] [address] [place] [phone] 10/28/2023 Israel Godoy Plan Of Treatment Medication Medication Name Sig Start Date Stop Date Notes Eliquis 5 MG TAKE 1 TABLET BY JAMES TH TWICE A DAY Orally twice a day for 30 days Next Appt Details Provider Name:Israel grider, 01/12/2025 09:00:00 AM, [address] [place] [address], [phone], Provider Name:Israel grider, 07/06/2025 07:15:00 AM, [address] [place] [address], [phone], Provider Name:Israel grider, 07/13/2025 09:30:00 AM, [address] [place] [address], [phone], Progress Notes * Kevin NEIL PDOB:[birth year] (78 yo M)Acc No.[id number]:10/28/2023 Patient: Ozzie Kevin guevara :1945 A ge:78 Y S ex:Male Address:[address] [place] [address] * Refills Refill Eliquis Tablet, 5 MG, Orally, 60, TAKE 1 TABLET BY MOUTH TWICE A DAY, twice a day, 30 days, Refills=3 * true * Date: Generated for Latha juarez/Jim/Tgitting on: 05:58 PM EDT
--- OUTSIDE RECORDS SUMMARY | 2023-11-09 03:45 | XMS_ITS ---
Author Organization Israel Godoy MD Address [address] [place], [place] [phone] Care Team Providers Care Database Marketing Analyst Name Role Phone Israle Godoy Primary Care Provider [phone] Results Component Value Reference Range Notes Complete Blood Count Auto Di ff Reviewed date:11/11/2023 12:37:11 PM Interpretation: Performing Lab:[facility], [address] [place] [phone] Notes/Report: White Blood Count 4.2 4.8-10.8 X10*3/uL [...] Location Date Provider Diagnosis Israel Godoy MD [address] [place] [address] [place] [phone] 11/09/2023 Israel Godoy Thrombocytopenia D69 .6 Assessments Encounter Date Diagnosis (ICD Code) Assessment Notes Treatment Notes Treatment Clinical Notes Section Notes 11/09/2023 Thrombocytopenia (ICD-10 - D69.6) Plan Of Treatment Next Appt Details Provider Name:Israel Cortez ier, 01/12/2025 09:00:00 AM, [address] [place] [address], [phone], Provider Name:Israel Cortez ier, 07/06/2025 07:15:00 AM, [address] [place] [address], [phone], Provider Name:Israel Cortez ier, 07/13/2025 09:30:00 AM, [address] [place] [address], [phone], Progress Notes * Kevin NEIL PDOB:[birth year] (79 yo M)Acc No.[id number]:11/09/2023 Progress Note Patient: Kevin LAW Provider: Arturo Godoy MD :1945 A ge:78 Y S ex:Male Date:11/09/2023 Address:[address] [place], [place] [phone] Subjective: * Chief Complaints: * 1 . [...] 0 11/09/2023 Generated for Latha juarez/Jim/Jt on: 05:59 PM EDT
--- OUTSIDE RECORDS SUMMARY | 2024-01-10 06:45 | XMS_ITS ---
Author Organization Israel Godoy MD Address [address] [place], [place] [phone] Care Team Providers Care Sales Agent Name Role Phone Israel Godoy Primary Care Provider [phone] Allergies Allergen (clinical drug ingredient) Drug/Non Drug Allergy documented on EMR Reaction Allergy Type Onset Date Status sulfacetamide Sulfacetamide Sodium rash Drug Allergy Active IV dye (uncoded) rash Allergy Act yael Results Component Value Reference Range Notes Urinalysis and Microscopic Reviewed date:01/10/2024 04:44:43 PM Interpretation: Performing Lab:[facility], [address] [place] [phone] Notes/Report: Color Urine Yellow Appearance Urine Clear PH 5.5 5.0-9.0 Glucose Urine UA Negative Negative mg/dL Urine Blood Negative Negative Specific [place] - Urine <= 1.005 1.005-1.025 Urine Protein Negative Neg-Trace mg/dL Urine Ketones Negative Negative mg/dL Nitrite Urine Negative Negative Leukocyte Esterase Urine Negative Negative RBC Urine 0-2 0-2 /HPF WBC Urine 0-5 0-5 /HPF Squamous Epithelial Cell Urine 0-2 0-2 /HPF Bacteria Urine None Seen None Seen Hyaline Casts Urine 0-2 0-2 /LPF Urine Culture Reviewed date:01/11/2024 01:03:29 PM Interpretation: Performing Lab:[address] [phone] Notes/Report: Urine Culture No growth. REASON FOR [...] Location Date Provider Diagnosis Israel Godoy MD [address] [place] [phone] 01/10/2024 Israel Godoy Lower abdominal pain R10.30 [...] Reason: Provider Name:Israel grider, 01/12/2025 09:00:00 AM, [address] [place] [address], [address], [phone], Provider Name:Israel grider, 07/06/2025 07:15:00 AM, [address] [place] [address], [phone], Provider Name:Israel grider, 07/13/2025 09:30:00 AM, [address] [place] [address], [address], [phone], Progress Notes * Kevin NEIL PDOB:[birth year] (78 yo M)Acc No.[id number]:01/10/2024 Progress Notes Patient: Kevin Knapp Benji Provider: Arturo Godoy MD :1945 A ge:78 Y S ex:Male Date:01/10/2024 Address:[address] [place], [place] [address], [phone] Subjective: * Chief Complaints: * 6 month [...] Date: 03/11/2023 Generated for Latha juarez/Jim/Haroonsmitting on: 05:57 PM EDT History and Physical Notes * [...]
--- OUTSIDE RECORDS SUMMARY | 2024-01-11 03:45 | XMS_ITS ---
Author Organization Israel Godoy MD Address [address] [place] [phone] Care Team Providers Care Tax Intern Name Role Phone Israel Godoy Primary Care Provider Results Component Value Reference Range Notes Blood Urea Nitrogen Reviewed date:01/11/2024 12:35:59 PM Interpretation: Performing Lab:[facility], [address] [place] [phone] Notes/Report: Blood Urea Nitrogen 12 9-16 mg/dL Creatinine Reviewed date:01/11/2024 12:35:49 PM Interpretation: Performing Lab:[facility], [address] [place] [phone] Notes/Report: Creatinine 0.85 0.5-1.4 mg/dL Estimated Glomerular Filt Rate > 60 NOTE: For -[place] Islander individuals, multiply the result by 1.210. Chronic Kidney Disease: Estimated GFR < 60 mL/min/1.73m2 Severe Kidney Disease: Estimated GFR < 15 mL/min/1.73m2 REASON FOR VISIT BUN , CREATININE Encounters Encounter Location Date Provider Diagnosis Israel Godoy MD [address] [place] [phone] 01/11/2024 Israel Godoy Blood tests prior to treatment or procedure Z01.812 and Lower abdominal pain R10.30 Assessments Encounter Date Diagnosis (ICD Code) Assessment Notes Treatment Notes Treatment Clinical Notes Section Notes 01/11/2024 Blood tests prior to treatment or procedure (ICD-10 - Z01.812) Patient allergic to IVP dye so [facility] needed a new Order. faxed to [phone] 01/11/2024 Lower abdominal pain (ICD-10 - R10.30) Plan Of Treatment Treatment Notes Assessment Notes Blood tests prior to treatment or proced ure Patient allergic to IVP dye so [facility] needed a new Order. faxed to [phone] Pending Test Test Name Order Date CT abdomen pelvis wo con 01/11/2024 Next Appt Details Provider Name:Israel Cortez ier, 01/12/2025 09:00:00 AM, [address] [place] [address], [address] [place], [place], [phone], Provider Name:Israel Cortez ier, 07/06/2025 07:15:00 AM, [address] [place] [address], [address] [place], [place], [phone], Provider Name:Israel Cortez ier, 07/13/2025 09:30:00 AM, [address] [place] [address], [address], [place], [place], [phone], Progress Notes * Kevin NEIL PDOB:[birth year] (79 yo M)Acc No.[id number]:01/11/2024 Progress Note Patient: Kevin LAW Provider: Arturo Godoy MD :1945 A ge:78 Y S ex:Male Date:01/11/2024 Address:[address] [place], [place] [phone] Subjective: * Chief Complaints: * 1 . BUN , CREATININE. * Medical History: Objective: * Vitals: Assessment: * Assessment: 1. B lood tests prior to treatment or procedure - Z01.812 (Primary) 2 . L ower abdominal pain - R10.30 Plan: * Treatment: 2. L ower abdominal pain I maging: CT abdomen pelvis wo con * Procedure Codes: 3 6415 VENIPUNCT, ROUTINE* * * The named appointment provid er may or may not be the originator of this progress note, and it is not deemed complete until electronically signed by the appointment provider. Sign off status: Pending * Provider: Arturo Godoy MD Date: 03/12/2023 Generated for Latha juarez/Jim/eTransmitting on: 05:59 PM EDT
--- OUTSIDE RECORDS SUMMARY | 2024-02-14 06:45 | XMS_ITS ---
Author Organization Israel Godoy MD Address [address] [place] [phone] Care Team Providers Care Java Oracle Developer Name Role Phone Israel Godoy Primary Care [...] Problem Status W/U Status Risk Notes Problem 80116272 Aortic atherosclerosis (I70.0) Active confirmed Vital Signs Blood pressure systolic 118 mm Hg 02/14/20 24 Blood pressure diastolic 60 mm Hg 024 Height 70 in 02/14/2024 Weight 146 lbs 02/14/2024 BMI 20.95 kg/m2 02/14/2024 Encounters Encounter Location Date Provider Diagnosis Israel Godoy MD [address] [place] [phone] 02/14/2024 Israel Godoy Left inguinal hernia K40.90 [...] Details Provider Name:Israel grider, 01/12/2025 09:00:00 AM, [address] [place] [address], [address] [place] [address], [phone], Provider Name:Israel grider, 07/06/2025 07:15:00 AM, [address] [place] [address], Suite [facility], [place], [place], [phone], Provider Name:Israel mendozar, 07/13/2025 09:30:00 AM, [address] [place] [address], Suite [facility], [place], [place], [phone], Progress Notes * Kevin NEIL PDOB:[birth year] (78 yo M)Acc No.[id number]:02/14/2024 Patient: Ozzie Kevin guevara Provider: Arturo Godoy MD :1945 A ge:78 Y S ex:Male Date:02/14/2024 Address:[address] [place], [place] [phone] Subjective: * Chief Complaints: * 6 WK [...] Date: 04/16/2023 Generated for Latha juarez/Jim/Jt on: 05:58 PM EDT History and Physical Notes * [...]
--- OUTSIDE RECORDS SUMMARY | 2024-07-03 04:00 | XMS_ITS ---
Author Organization Israel Godoy MD Address [address] [place], [place] [phone] Care Team Providers Care Advanced Practice Nurse Psychotherapist Name Role Phone Israel Godoy Primary Care Provider Results Component Value Reference Range Notes Complete Blood Count Auto Di ff Reviewed date:07/03/2024 04:58:58 PM Interpretation: Performing Lab:[facility], [address] [place] [phone] Notes/Report: White Blood Count 4.8 4.8-10.8 X10*3/uL Red Blood Count 4.22 4.60-5.80 X10*6/uL Hemoglobin 13.3 14.0-18.0 g/dl Hematocrit 39.0 42.0-52.0 % Mean Corpuscular Volume 92.4 80.0-98.0 fL Mean Corpuscular Hemoglobin 31.5 27.0-33.0 pg Mean Corpuscular HGB Conc 34.1 31.0-36.0 g/dl Red Cell Distribution Width 14.4 11.0-16.0 % Platelet Count 166 160-400 X10*3/uL Mean Platelet Volume 10.7 9.4-12.4 fL Neutrophils Percent Auto 49.7 45-73 % Imm Gran Pct Auto 0.2 0.0-0.4 % Lymphocytes Percent Auto 20.5 20-40 % Monocytes Percent Auto 16.8 2-11 % Eosinophils Percent Auto 11.6 0-4 % Basophils Percent Auto 1.2 0-2 % NRBC Pct Auto 0.0 0.0-0.2 /100WBC Neutrophils Absolute Auto 2.4 2.0-8.3 x10*3/u L Imm Gran Abs Auto 0.01 0.00-0.03 X10*3/uL Lymphocytes Absolute Auto 1.0 1.2-4.9 X10*3/u L Monocytes Absolute Auto 0.8 0.1-1.2 X10*3/uL Eosinophils Absolute Auto 0.6 0.0-0.4 X10*3/u L Basophils Absolute Auto 0.1 0.0-0.2 X10*3/uL NRBC Abs Auto 0.000 0.0-0.012 X10*3/uL Comprehensive [place]. Panel Fa st Reviewed date:07/03/2024 05:03:37 PM Interpretation: Performing Lab:[facility], [address] [place] [phone] Notes/Report: Sodium 134 135-145 mmol/L Potassium 4.0 3.3-5.1 mmol/L Chloride 101 96-108 mmol/L Carbon Dioxide 25 22-29 mmol/L Anion Gap 12 12-20 Blood Urea Nitrogen 14 9-16 mg/dL Creatinine 0.80 0.5-1.4 mg/dL Estimated Glomerular Filt Rate > 60 Chronic Kidney Disease: Estimated GFR < 60 mL/min/1.73m2 Severe Kidney Disease: Estimated GFR < 15 mL/min/1.73m2 Glucose Fasting 87 60-99 mg/dL Calcium 9.2 8.4-10.2 mg/dL Bilirubin Total 1.3 0.0-1.0 mg/dL Aspartate Amino Transferase 34 5-37 U/L Alanine Aminotransferase 22 0-40 U/L Total Protein 7.2 6.5-8.0 g/dL Albumin Level 3.9 3.5-5.0 g/dL Alkaline Phosphatase 67 39-117 U/L Lipid Panel Reviewed date:07/03/2024 04:47:31 PM Interpretation: Performing Lab:[facility], [address] [place] [phone] Notes/Report: Triglycerides 53 <150 mg/dL Desirable Triglyceride: less than 150 mg/dL Borderline High Triglyceride 150-199 mg/dL High Triglyceride: 200-499 mg/dL Very High Triglyceride: greater than or equal to 5OO mg/dL Cholesterol 175 <200 mg/dL Desirable Cholesterol: less than 200 mg/dL Borderline High Cholesterol: 200-239 mg/dL High Cholesterol: greater than 239 mg/dL LDL Cholesterol Calculated 100 <100 mg/dL Desirable LDL: less than 100 mg/dL Near Optimal/Above Optimal LDL: 110-129 mg/dL Borderline High LDL: 130-159 mg/dL High LDL: 160-189 mg/dL Very High LDL: greater than or equal to 190 mg/dL HDL Cholesterol 65 >40 mg/dL Desirable HDL: greater than 40 mg/dL Note: This HDL assay may give artificially low results in patients with liver disease. PSA,Total (Free>4and<10) Reviewed date:07/03/2024 04:48:34 PM Interpretation: Performing Lab:[facility], [address] [place] [phone] Notes/Report: PSA,Total (Free>4and<10) 0.40 0.00-4.00 ng/mL A Free PSA was not performed: The percentage of Free PSA can be used to enhance the differentiation of prostate cancer from benign prostatic disease in subjects whose PSA levels are between 4.0 and 10.0 ng/mL. For subjects whose PSA levels are below 4.0 or above 10.0 ng/mL, the risk of prostate cancer is determined on the basis of the PSA alone. Therefore the % Free PSA is recommended only for those subjects whose PSA levels are between 4.0 and 10.0 ng/mL. PSA methodology: Epps Alinity i Chemiluminescent Microparticle Immunoassay (CMIA) UA ClnCatch+Micro w/rflx Cul t Reviewed date:07/03/2024 05:00:22 PM Interpretation: Performing Lab:[facility], [address] [place] [phone] Notes/Report: Urine, Clean Catch Color Urine Yellow Appearance Urine Clear PH 7.0 5.0-9.0 Glucose Urine UA Negative Negative mg/dL Urine Blood Negative Negative Specific [place] - Urine 1.015 1.005-1.025 Urine Protein Negative Neg-Trace mg/dL Urine Ketones Negative Negative mg/dL Nitrite Urine Negative Negative Leukocyte Esterase Urine Negative Negative RBC Urine 0-2 0-2 /HPF WBC Urine 0-5 0-5 /HPF Squamous Epithelial Cell Urine 0-2 0-2 /HPF Bacteria Urine None Seen None Seen Hyaline Casts Urine 0-2 0-2 /LPF REASON FOR VISIT yearly fasting labs Encounters Encounter Location Date Provider Diagnosis Israel Godoy MD [address] [place] [address] [place] [phone] 07/03/2024 Israel Godoy Pure hypercholestero lemia E78.00 ; Essential (primary) hypertension I10 ; Prostatism N40.0 and Thrombocytopenia D69.6 Assessments Encounter Date Diagnosis (ICD Code) Assessment Notes Treatment Notes Treatment Clinical Notes Section Notes 07/03/2024 Pure hypercholesterolemia (ICD-10 - E78.00) 07/03/2024 Essential (primary) hypertension (ICD-10 - I10) 07/03/2024 Prostatism (ICD-10 - N40.0) 07/03/2024 Thrombocytopenia (IC D-10 - D69.6) Plan Of Treatment Next Appt Details Provider Name:Israel Cortez ier, 01/12/2025 09:00:00 AM, [address] [place] [address], [address], [phone], Provider Name:Israel Cortez ier, 07/06/2025 07:15:00 AM, [address] [place] [address], [address], [phone], Provider Name:Israel Cortez ier, 07/13/2025 09:30:00 AM, [address] [place] [address], [address], [phone], Progress Notes * KIRKKevin PDOB:[birth year] (79 yo M)Acc No.[id number]:07/03/2024 Progress Note Patient: Kevin LAW Provider: Arturo Godoy MD :1945 A ge:79 Y S ex:Male Date:07/03/2024 Address:[address] [place], [place] [phone] Subjective: * Chief Complaints: * 1 . Yearly fasting labs. * Medical History: Objective: * Vitals: Assessment: * Assessment: 1. P ure hypercholesterolemia - E78.00 (Primary) 2 . E ssential (primary) hypertension - I10 3 . P rostatism - N40.0 4 . T hrombocytopenia - D69.6 Plan: * Treatment: 2. E ssential (primary) hypertension L AB: Complete Blood Count Auto Diff (Collection Date & Time - 07/03/2024 08:00 AM) L AB: Comprehensive [place]. Panel Fast (Collection Date & Time - 07/03/2024 08:00 AM) L AB: Lipid Panel (Collection Date & Time - 07/03/2024 08:00 AM) L AB: PSA,Total (Free>4and<10) (Collection Date & Time - 07/03/2024 08:00 AM) L AB: UA ClnCatch+Micro w/rflx Cult (Collection Date & Time - 07/03/2024 08:00 AM) 3. P rostatism L AB: Complete Blood Count Auto Diff (Collection Date & Time - 07/03/2024 08:00 AM) L AB: Comprehensive [place]. Panel Fast (Collection Date & Time - 07/03/2024 08:00 AM) L AB: Lipid Panel (Collection Date & Time - 07/03/2024 08:00 AM) L AB: PSA,Total (Free>4and<10) (Collection Date & Time - 07/03/2024 08:00 AM) L AB: UA ClnCatch+Micro w/rflx Cult (Collection Date & Time - 07/03/2024 08:00 AM) 4. T hrombocytopenia L AB: Complete Blood Count Auto Diff (Collection Date & Time - 07/03/2024 08:00 AM) L AB: Comprehensive [place]. Panel Fast (Collection Date & Time - 07/03/2024 08:00 AM) L AB: Lipid Panel (Collection Date & Time - 07/03/2024 08:00 AM) L AB: PSA,Total (Free>4and<10) (Collection Date & Time - 07/03/2024 08:00 AM) L AB: UA ClnCatch+Micro w/rflx Cult (Collection Date & Time - 07/03/2024 08:00 AM) * Procedure Codes: 3 6415 VENIPUNCT, ROUTINE* * * The named appointment provid er may or may not be the originator of this progress note, and it is not deemed complete until electronically signed by the appointment provider. Sign off status: Pending * Provider: Arturo Godoy MD Date: 0 07/03/2024 Generated for Latha juarez/Jim/Jt on: 1 05:58 PM EDT
--- OUTSIDE RECORDS SUMMARY | 2024-07-10 05:30 | XMS_ITS ---
Author Organization Israel Godoy MD Address [address] [place], [place] [phone] Care Team Providers Care Transportation Logistics Internship Name Role Phone Israel Godoy Primary Care Provider [phone] Allergies Allergen (clinical drug ingredient) Drug/Non Drug [...] Location Date Provider Diagnosis Israel Godoy MD [address] [place] [address] Drive [address] [place], [place] [phone] 07/10/2024 Israel Godoy Monocytosis D72.821 ; Inguinal [...] Name:Israel Cortez ier, 01/12/2025 09:00:00 AM, [address] [facility], [address] [facility], [place], [place], [phone], Provider Name:Israel grider, 07/06/2025 07:15:00 AM, [address] [facility], [address] [facility], [place], [place], [phone], Provider Name:Israel Cortez ier, 07/13/2025 09:30:00 AM, [address] [facility], [address] [facility], [place], [place], [phone], Progress Notes * Kevin NEIL PDOB:[birth year] (79 yo M)Acc No.[id number]:07/10/2024 Patient: Kevin LAW Provider: Arturo Godoy MD :1945 A ge:79 Y S ex:Male Date:07/10/2024 Address:[address] [place], [place] [phone] Subjective: * Chief Complaints: * R eview [...] sister(s) . 1 daughter(s) . . Father- [place] Mother- CVA 1 sister Cardiac, Denies mental [...] mg/dL Urine Blood Negative Negative - Specific [place] - Urine 1.015 1.005-1.025 - Urine Protein [...] Auto 0.000 0.0-0.012 - X10*3/uL L ab:Comprehensive [place]. Panel Fast (Order Date - 07/03/2024) (Collection [...] 07/10/2024 Generated for Latha juarez/Jim/Tgitting on: 1 05:58 PM EDT History and Physical Notes [...]
--- OUTSIDE RECORDS SUMMARY | 2024-09-29 07:30 | XMS_ITS ---
Author Organization Israel Godoy MD Address [address] [place] [phone] Care Team Providers Care Goodyear Stitcher Name Role Phone Israel Godoy Primary Care Provider [phone] Allergies Allergen (clinical drug ingredient) Drug/Non Drug Allergy documented on EMR Reaction Allergy Type Onset Date Status sulfacetamide Sulfacetamide Sodium rash Drug Allergy Active IV dye (uncoded) rash Allergy Act yael REASON FOR VISIT rash arms, chest and back x 2 weeks getting worse Medications Medication SIG (Take, Route, Frequency, Duration) Notes Start Date End Date Status Furosemide 20 MG TAKE 1 TABLET BY JAMES TH EVERY DAY FOR 30 DAYS Active Nitrostat 0.4 MG as directed Sublingu al for chest pain every 5 min up to 3 for 10 days 12/13/2018 Not-Taki ng Permethrin 5 % 1 application Motor Vehicle Assembler ally once for 1 days 09/29/2024 Active Metoprolol Tartrate 50 MG 1 tablet with food Orally once a day Active Eliquis 5 MG take 1 tablet by james th twice a day Orally Twice a day Active Vital Signs Height 70 in 09/29/2024 Weight 145 lbs 09/29/2024 BMI 20.8 kg/m2 09/29/2024 weight is down 3 pounds [facility] e 07-10-24 Encounters Encounter Location Date Provider Diagnosis Israel Godoy MD [address] [place] [phone] 09/29/2024 Israel Godoy Scabies B86 Assessments Encounter Date Diagnosis (ICD Code) Assessment Notes Treatment Notes Treatment Clinical Notes Section Notes 09/29/2024 Scabies (ICD-10 - B86) patient verbalized understanding of medication and directions for use Plan Of Treatment Medication Medication Name Sig Start Date Stop Date Notes Permethrin 5 % 1 application Externally once for 1 days Treatment Notes Assessment Notes Scabies patient verbalized u nderstanding of medication and directions for use Next Appt Details Provider Name:Israel Cortez ier, 01/12/2025 09:00:00 AM, [address] [place] [address], Suite [facility], [place], [place], [phone], Provider Name:Israel Cortez ier, 07/06/2025 07:15:00 AM, [address] [place] [address], Suite [facility], [place], [place], [phone], Provider Name:Israel Cortez ier, 07/13/2025 09:30:00 AM, [address] [place] [address], [place] [address], [place], [place], [phone], Progress Notes * Kevin NEIL PDOB:[birth year] (79 yo M)Acc No.[id number]:09/29/2024 Progress Notes Patient: Kevin LAW Provider: Arturo Godoy MD :1945 A ge:79 Y S ex:Male Date:09/29/2024 Address:[address] [place], [place] [phone] Subjective: * Chief Complaints: * R joann arms, chest and back x 2 weeks getting worse * HPI: S ymptom(s): patient is a 79 yo male here with complaint of rash began a couple weeks ago. on arms and little on back. very itchy. has been on furosemide for 2 years.has swelling in ankles that goes away after sleeping. * ROS: G eneral/Constitutional: Denies C hills. D enies F atigue. D enies F ever. D enies H eadache. E NT: Denies S ore throat. R espiratory: Denies C ough. D enies S hortness of breath at rest. D enies S hortness of breath with exertion. G astrointestinal: Denies D iarrhea. D enies N ausea. * Medical History: * Surgical History: * [...] Objective: * Vitals: H t: 70, Wt: 145, BMI:20.8, Wt-k.77. weight is down 3 pounds since 07-10-24. * Examination: G eneral Examination: GENERAL APPEARANCE: p leasant, well nourished, well developed, in no acute distress. SKIN: a bnormal with a fine rash on arms and some on chest and back. had been up to [place] but had the rash before that/ some of the lesions come and go.. Assessment: * Assessment: 1. S cabies - B86 (Primary) Plan: * Treatment: * Procedure Codes: * * Sign off status: Completed true * Provider: Arturo Godoy MD Date: 0 09/29/2024 Generated for Latha juarez/Jim/Tgitting on: 1 05:59 PM EDT History and Physical Notes * HPI (History of Present Illness) Category Sub-Category Detail Notes Category Not es Symptom(s) patient is a 79 yo male here with complaint of rash began a couple weeks ago. on arms and little on back. very itchy. has been on furosemide for 2 years.has swelling in ankles that goes away after sleeping. Examination Category Sub-Category Detail Notes Category Not es General Examination GENERAL APPEARANCE: pleasant , well nourished, well developed, in no acute distress SKIN: abnormal with a fine rash on arms and some on chest and back. had been up to [place] but had the rash before that/ some of the lesions come and go.
--- OUTSIDE RECORDS SUMMARY | 2024-11-14 07:30 | XMS_ITS ---
Author Organization Israel Godoy MD Address [address] [place] [phone] Care Team Providers Care Tobacco Warehouse Manager Name Role Phone Israel Godoy Primary Care Provider Allergies Allergen (clinical drug ingredient) Drug/Non Drug Allergy documented on EMR Reaction Allergy Type Onset Date Status sulfacetamide Sulfacetamide Sodium rash Drug Allergy Active IV dye (uncoded) rash Allergy Act yael REASON FOR VISIT Scabies treatment Medications Medication SIG (Take, Route, Frequency, Duration) Notes Start Date End Date Status Triamcinolone Acetonide 0.5 % 1 application to affected area Externally Twice a day for 30 days 11/14/2024 Active Eliquis 5 MG take 1 tablet by james th twice a day Orally Twice a day Active Permethrin 5 % 1 application Externally once for 1 days 09/29/2024 Active Furosemide 20 MG TAKE 1 TABLET BY JAMES TH EVERY DAY FOR 30 DAYS Active Nitrostat 0.4 MG as directed Sublingu al for chest pain every 5 min up to 3 for 10 days 12/13/2018 Not-Taki ng Metoprolol Tartrate 50 MG 1 tablet with food Orally once a day Active Immunizations Vaccine Route Administration Date Status Comme nts Influenza High Dose IM Intramuscular 11/14/2024 Administer ed Vital Signs Blood pressure systolic 112 mm Hg 11/15/19 25 Blood pressure diastolic 60 mm Hg 025 Height 70 in 11/14/2024 Weight 142 lbs 11/14/2024 BMI 20.37 kg/m2 11/14/2024 weight is down 3 pounds dontae infante 09-29-24 Encounters Encounter Location Date Provider Diagnosis Israel Godoy MD [address] [place], [place] [phone] 11/14/2024 Israel Godoy Encounter for administration of vaccine Z23 and Eczema L30.9 Assessments Encounter Date Diagnosis (ICD Code) Assessment Notes Treatment Notes Treatment Clinical Notes Section Notes 11/14/2024 Encounter for administration of vaccine (ICD-10 - Z23) HD flu vaccine admnistered 11/14/2024 Eczema (ICD-10 - L30.9) has appt with derm in one month, verbalized understandngofmedication and directions for use Plan Of Treatment Medication Medication Name Sig Start Date Stop Date Notes Triamcinolone Acetonide 0.5 % 1 applicat ion to affected area Externally Twice a day for 30 days 11/14/2024 Treatment Notes Assessment Notes Encounter for administration of vaccine HD flu vaccine admnistered Eczema has appt with derm i n one month, verbalized understandngofmedication and directions for use Next Appt Details Provider Name:Israel grider, 01/12/2025 09:00:00 AM, [address] [place] [address], [address], [phone], Provider Name:Israel grider, 07/06/2025 07:15:00 AM, [address] [place] [address], [address], [phone], Provider Name:Israel grider, 07/13/2025 09:30:00 AM, [address] [place] [address], [address] [place] [address], [phone], Progress Notes * Kevin NEIL PDOB:[birth year] (79 yo M)Acc No.[id number]:11/14/2024 Progress Notes Patient: Kevin LAW Benji Provider: Arturo Godoy MD :1945 A ge:79 Y S ex:Male Date:11/14/2024 Address:[address] [place], [place] [phone] Subjective: * Chief Complaints: * S cabies treatment * HPI: S ymptom(s): patient is a 79 yo male here for follow up visit, rash is worse. has been over 6 weeks. treatment did nothing. has a soreness under his testicles. had some blood there. is extra sore in that area. * ROS: G eneral/Constitutional: Denies C hills. [...] BY MOUTH EVERY DAY FOR 30 DAYS Permethrin 5 % Cream 1 application Externally once Taking Metoprolol Tartrate 50 MG Tablet 1 tablet with food Orally once a day Taking Eliquis 5 MG Tablet take 1 tablet by mouth twice a day Orally Twice a day Taking Furosemide 20 MG Tablet TAKE 1 TABLET BY MOUTH EVERY DAY FOR 30 DAYS Taking Permethrin 5 % Cream 1 application Externally once Not-Taking/PRNNitrostat 0.4 MG Tablet Sublingual as directed [...] Objective: * Vitals: H t: 70, Wt: 142, BMI:20.37, BP:112/60, Wt-k.41. weight is down 3 pounds since 09-29-24. * Examination: G eneral Examination: GENERAL APPEARANCE: a lert, well hydrated, in no distress.? HEAD: n ormocephalic. SKIN: a bnormal with multiple plaques on arms and legs and in groin./ lower left leg with stasis dermatitis. Assessment: * Assessment: 1. E czema - L30.9 (Primary) 2 . E ncounter for administration of vaccine - Z23 Plan: * Treatment: 2. E ncounter for administration of vaccine Notes: HD flu vaccine admnistered * Immunizations: Influenza High Dose : 0.5 mL (Dose No:1) (Route: Intramuscular) given by Elma Munoz , Office Staff on Left Deltoid * Procedure Codes: 9 0662 FLU VACC PRSV FREE INC [id number] ADMN FLU VAC NO FEE SCHED SAME DAY * Preventive Medicine: Immunizations: I nfluenza H ave you had a flu shot since the most recent November 03? Y es. * * Sign off status: Completed true * Provider: Arturo Godoy MD Date: 0 11/14/2024 Generated for Latha juarze/Jim/Tgitting on: 05:57 PM EDT History and Physical Notes * HPI (History of Present Illness) Category Sub-Category Detail Notes Category Not es Symptom(s) patient is a 79 yo male here for follow up visit, rash is worse. has been over 6 weeks. treatment did nothing. has a soreness under his testicles. had some blood there. is extra sore in that area. Examination Category Sub-Category Detail Notes Category Not es General Examination GENERAL APPEARANCE: alert, w ell hydrated, in no distress HEAD: normocephalic SKIN: abnormal with multip le plaques on arms and legs and in groin./ lower left leg with stasis dermatitis
[2024-12-25 14:12] VITALS: BP 120/70; PULSE 64; BMI 21.0
--- NOTE | 2024-12-25 14:12 | MHC.OFFVIS ---
Vital Signs 12/25/24 14:12 Height 5 ft 9 in Weight 141 lb 15.643 oz BMI 21.0 BP 120/70 Blood Pressure Location Lt brachial Position Sitting Pulse 64 Pulse Source Monitor Intake Visit Reasons: 1 yr follow up Museum Tour Guide Required: No Accompanied by: Self / Same As Patient Allergies contrast dye Adverse Reaction (Intermediate, Uncoded 06/25/23 14:10) Rash Medication List - Last Reconciled 12/25/24 by Jean Pierre Clinton MD apixaban (Eliquis) 5 mg PO BID furosemide 20 mg PO DAILY metoprolol succinate ER 50 mg PO DAILY HPI Comments Details: Kevin returns for follow-up regarding atrial fibrillation. In the past, identified at primary care physician's office. Patient himself states he feels well. He has got no cardiac symptoms. He states he feels fine. FOR[facility]LY [facility] Medical History Essential hypertension Surgical History Hx of tonsillectomy Family History Father CHF (congestive heart failure) Mother Stroke Social History Alcohol intake: current Alcohol intake frequency: holidays/special occasions only Patient Tobacco Use Status: Former Tobacco user Years Smoked: 2 +/- Review of Systems Const Denies chills, Denies fatigue, Denies fever(s), Denies frequent falls, Denies weakness, Denies weight gain and Denies weight loss ENT Denies dizziness Card Denies chest pain, Denies leg edema, Denies lightheadedness, Reports palpitations, Denies dyspnea and Denies dyspnea on exertion Resp Denies cough, Denies dyspnea and Denies dyspnea on exertion GI Denies hematochezia Musc Denies abnormal gait, Denies muscle weakness, Denies numbness, Denies radiating pain into limb and Denies tingling Neuro Denies abnormal gait, Denies dizziness, Denies frequent falls, Denies numbness, Denies tingling and Denies weakness Endo Denies fatigue and Reports palpitations Physical Exam Vital Signs: Last Vital Signs Pulse 64 12/25/24 14:12 BP 120/70 12/25/24 14:12 BMI result Body Mass Index 21.0 Const General: comfortable and no acute distress Orientation/consciousness: patient oriented x3 HEENT Other: Unremarkable Head: Yes normal to inspection Neck Neck: Yes normal visual inspection Chest Chest palpation & inspection: normal inspection of the chest Resp Auscultation: clear to auscultation bilaterally Cardio Palpation: normal PMI Heart sounds: S1 normal heart sound present, S2 normal heart sound present, no gallops, no murmurs and no rubs GI Palpation (GI): Soft to palpation Back/Spine/Pelvis Other: unremarkable Skin General skin exam: no rashes or lesions noted Neuro General: patient oriented x3 Extrem General: Yes normal to inspection Psych Mental Status: mental status grossly normal Office Procedures EKG Details: EKG with atrial fibrillation at 64/Min. 87092-[id number], Complete Assessment & Plan Assessment & Plan (1) Atrial fibrillation by electrocardiogram: Code(s): I48.91 - Unspecified atrial fibrillation Category: Medical Plan: Echocardiogram with LVEF of 65-70%. No significant valvular findings. In the Holter monitor, underlying rhythm is atrial fibrillation with good rate control; average heart rate of 64/Min. Overall, well controlled atrial fibrillation. Continue metoprolol/Eliquis. Coding Level of Care Code Est Pt Level 3 (10785) Diagnoses Atrial fibrillation by electrocardiogram I48.91 CPT Codes EKG - CPT: 72845-Anyeteidcfimzvzrw, Complete ([id number])
--- OUTSIDE RECORDS SUMMARY | 2024-12-25 17:58 | XMS_ITS | Patient Health Record ---
Author Organization [facility] Address [address] [place] [address] Care Team Providers Care Hair Mixer Name Role Phone Israel Godoy MD Primary Care Provider Mike Maldonado Unavailable [phone] Allergies Allergen (clinical drug ingredient) Drug/Non Drug Allergy documented on EMR Reaction Allergy Type Onset Date Status Sulfa Unknown Drug Allergy Active IVP Dye (uncoded) Unknown Allergy Ac tive Reason For Referral No Information Medications Medication SIG (Take, Route, Frequency, Duration) Notes Start Date End Date Status Antacid 03/05/2024 03/05/2024 Active Problems Problem Type SNOMED Code ICD Code Onset Dates Problem Status W/U Status Risk Notes Problem Colon cancer screening (970176016) Colon cancer screening (V76.51) Active confirmed Problem Clostridium difficile colitis (266325402) Clostridium difficile colitis (008.45) Active confirmed Problem History of adenomatous polyp of colon (977557795) History of adenomatous polyp of colon (V12.72) Active confirmed Plan Of Treatment Future Test Test Name Order Date COLONOSCOPY 12/21/2011 Insurance Providers Payer Name Payer Address Payer Phone Subscriber Number Group Number Insured Name Patient Relationship to Insured Coverage Start Date Coverage End Date MEDICARE OF [place] [address] [place] [address] [id number] MIKE BRADLEY Self - patient is the insured [facility] IN[facility] [address] [place] [address] [id number] MIKE BRADLEY Self - patient is the insured Medical (General) History Medical History History ICD Code colonoscopy 08-29-2006 with removal of a tubular adenoma ulcer disease in the 1970's prostatitis kidney stones Denies NV,DM,CVA,Lung disease,renal dise ase Cdiff in Spring 2011 in relation to Clin damycin Surgical History Surgery Date(Month/Year) tonsillectomy
--- OUTSIDE RECORDS SUMMARY | 2024-12-25 17:59 | XMS_ITS | Patient Health Record ---
Author Organization Israel Godoy MD Address [address] [place], [place] [id number] Care Team Providers Care Assistant Director Of Nursing Name Role Phone Israel Godoy Primary Care Provider Allergies Allergen (clinical drug ingredient) Drug/Non Drug Allergy documented on EMR Reaction Allergy Type Onset Date Status sulfacetamide Sulfacetamide Sodium rash Drug Allergy Active IV dye (uncoded) rash Allergy Act yael Results Component Value Reference Range Notes Blood Urea Nitrogen Reviewed date:01/11/2024 12:35:59 PM Interpretation: Performing Lab:[facility], [address] [place] [phone] Notes/Report: Blood Urea Nitrogen 12 9-16 mg/dL Creatinine Reviewed date:01/11/2024 12:35:49 PM Interpretation: Performing Lab:[facility], [address] [place] [phone] Notes/Report: Creatinine 0.85 0.5-1.4 mg/dL Estimated Glomerular Filt Rate > 60 NOTE: For -Austrian individuals, multiply the result by 1.210. Chronic Kidney Disease: Estimated GFR < 60 mL/min/1.73m2 Severe Kidney Disease: Estimated GFR < 15 mL/min/1.73m2 Complete Blood Count Auto Di ff Reviewed date:07/03/2024 04:58:58 PM Interpretation: Performing Lab:[address] [phone] Notes/Report: White Blood Count 4.8 4.8-10.8 X10*3/uL [...] NRBC Abs Auto 0.000 0.0-0.012 X10*3/uL Comprehensive [place]. Panel Fa st Reviewed date:07/03/2024 05:03:37 PM Interpretation: Performing Lab:[facility], [address] [place] [phone] Notes/Report: Sodium 134 135-145 mmol/L Potassium 4.0 [...] Panel Reviewed date:07/03/2024 04:47:31 PM Interpretation: Performing Lab:[address] [phone] Notes/Report: Triglycerides 53 <150 mg/dL Desirable Triglyceride: [...] (Free>4and<10) Reviewed date:07/03/2024 04:48:34 PM Interpretation: Performing Lab:[address] [phone] Notes/Report: PSA,Total (Free>4and<10) 0.40 0.00-4.00 ng/mL A [...] between 4.0 and 10.0 ng/mL. PSA methodology: [employer] i Chemiluminescent Microparticle Immunoassay (CMIA) UA ClnCatch+Micro w/rflx Cul t Reviewed date:07/03/2024 05:00:22 PM Interpretation: Performing Lab:[address] [phone] Notes/Report: Urine, Clean Catch Color Urine Yellow Appearance Urine Clear PH 7.0 5.0-9.0 Glucose Urine UA Negative Negative mg/dL Urine Blood Negative Negative Specific [place] - Urine 1.015 1.005-1.025 Urine Protein Negative Neg-Trace mg/dL Urine Ketones Negative Negative mg/dL Nitrite Urine Negative Negative Leukocyte Esterase Urine Negative Negative RBC Urine 0-2 0-2 /HPF WBC Urine 0-5 0-5 /HPF Squamous Epithelial Cell Urine 0-2 0-2 /HPF Bacteria Urine None Seen None Seen Hyaline Casts Urine 0-2 0-2 /LPF Urinalysis and Microscopic Reviewed date:01/10/2024 04:44:43 PM Interpretation: Performing Lab:[address] [phone] Notes/Report: Color Urine Yellow Appearance Urine Clear PH 5.5 5.0-9.0 Glucose Urine UA Negative Negative mg/dL Urine Blood Negative Negative Specific [place] - Urine <= 1.005 1.005-1.025 Urine Protein Negative Neg-Trace mg/dL Urine Ketones Negative Negative mg/dL Nitrite Urine Negative Negative Leukocyte Esterase Urine Negative Negative RBC Urine 0-2 0-2 /HPF WBC Urine 0-5 0-5 /HPF Squamous Epithelial Cell Urine 0-2 0-2 /HPF Bacteria Urine None Seen None Seen Hyaline Casts Urine 0-2 0-2 /LPF Urine Culture Reviewed date:01/11/2024 01:03:29 PM Interpretation: Performing Lab:[facility], [address] [place] [phone] Notes/Report: Urine Culture No growth. Occult Blood, Stool, Guaiac Reviewed date:07/10/2024 10:52:19 AM Interpretation:Negative Performing Lab: Notes/Report: Negative Occult Blood, Stool, Guaiac Neg Reason For Referral No Information Medications Medication SIG (Take, Route, Frequency, Duration) Notes Start Date End Date Status Triamcinolone Acetonide 0.5 % 1 application to affected area Externally Twice a day for 30 days 11/14/2024 Active Eliquis 5 MG take 1 tablet by james th twice a day Orally Twice a day Active Metoprolol Tartrate 50 MG 1 tablet with food Orally once a day Active Permethrin 5 % 1 application Externally once for 1 days 09/29/2024 Active Furosemide 20 MG TAKE 1 TABLET BY JAMES TH EVERY DAY FOR 30 DAYS Active Nitrostat 0.4 MG as directed Sublingu al for chest pain every 5 min up to 3 for 10 days 12/13/2018 Not-Jose ng Immunizations Vaccine Route Administration Date Status Comme nts Flu Vaccine IM Intramuscular 11/11/2010 Administered Flu Vaccine IM Intramuscular 12/12/2011 Administered Flu Vaccine IM Intramuscular 01/06/2013 Administered PPSV23 (Pnemovax) IM Intramuscular 01/17/2013 Administered DECLINED, PREVNAR 13 Unknown 07/17/2013 Administered Flu Vaccine IM Intramuscular 02/20/2014 Administered Fluarix Quadrivalent IM Intramuscular 12/22/2014 Administe red Shingles IM Intramuscular 03/25/2015 Administered Fluarix Quadrivalent IM Intramuscular 01/13/2016 Administe red Fluarix Quadrivalent IM Intramuscular 11/13/2016 Administe red Prevnar 13 IM Intramuscular 04/10/2017 Administered Fluarix Quadrivalent IM Intramuscular 11/22/2017 Administe red PPSV23 (Pnemovax) IM Intramuscular 04/12/2018 Administered PPSV23 (Pnemovax) IM Intramuscular 04/12/2018 Administered Fluarix Quadrivalent IM Intramuscular 02/07/2019 Administe red Influenza High Dose IM Intramuscular 11/14/2019 Administer ed SARS-COV-2 Pfizer Unknown 04/15/2020 Administered SARS-COV-2 Pfizer Unknown 05/06/2020 Administered SARS-COV-2 Pfizer Unknown 12/09/2020 Administered Influenza High Dose IM Intramuscular 12/30/2020 Administer ed SARS-COV-2 Pfizer Unknown 07/04/2021 Administered SARS-COV-2 Pfizer Unknown 12/16/2021 [facility]ered [facility] Influenza High Dose IM Intramuscular 12/30/2021 Administer ed Influenza High Dose IM Intramuscular 11/10/2022 Administer ed SARS-COV-2 Pfizer Unknown 12/01/2022 Administered Influenza High Dose Unknown 11/17/2023 [facility]ered [facility] SARS-COV-2 [facility] Unknown 11/17/2023 [facility]ered [facility] Influenza High Dose IM Intramuscular 11/14/2024 Administer ed TDaP Unknown 07/11/2018 Refused Shingrix Unknown 12/13/2018 Refused Social History Tobacco Use: Social History Observation [...] Never (0 point) Points 1 Interpretation Negative Problems Problem Type SNOMED Code ICD Code Onset Dates Problem Status W/U Status Risk Notes Problem 201545692 Thrombocytopenia (D69.6) Active confirmed Problem 41739714 Prostatism (N40.0) Active confirmed Problem Essential hypertension (19582737) Essential (primary) hypertension (I10) Active confirmed Problem 125019609 Tubular adenoma of colon (D12.6) Active confirmed Problem 537656400 Gastroesophageal reflux disease with esophagitis (K21.00) Active confirmed Problem 95701489 Heart murmur (R01.1) Active confirmed Problem 83357172 Monocytosis (D72.821) Active confirmed Problem 809260219587996 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) Active confirmed Problem 546711642 Pure hypercholesterolemia (E78.00) Active confirmed Problem 76679467 TETE (obstructive sleep apnea) (G47.33) Active confirmed Problem 614924324 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) Active confirmed Problem 044098605569459 History of Clostridioides difficile colitis (Z86.19) Active confirmed Problem 12184710 New onset atrial fibrillation (I48.91) Active confirmed Problem 90425008 Aortic atheroscl erosis (I70.0) Active confirmed Vital Signs Blood pressure diastolic 60 mm Hg 11/14/2024 jelly ght is down 3 pounds since 09-29-24 Height 70 in 11/14/2024 weight is down 3 pounds since 09-29-24 Blood pressure systolic 112 mm Hg 11/14/2024 lianna ht is down 3 pounds since 09-29-24 Weight 142 lbs 11/14/2024 weight is down 3 pounds since 09-29-24 BMI 20.37 kg/m2 11/14/2024 weight is down 3 pounds since 09-29-24 Encounters Encounter Location Date Provider Diagnosis Israel Godoy MD [address] [place] [id number] 01/11/2024 Israel Godoy Blood tests prior to treatment or procedure Z01.812 and Lower abdominal pain R10.30 Israel Godoy MD [address] [id number] 07/03/2024 Israel Godoy Pure hypercholestero lemia E78.00 ; Essential (primary) hypertension I10 ; Prostatism N40.0 and Thrombocytopenia D69.6 Israel Godoy MD [address] [place] [id number] 01/10/2024 Israel Godoy Lower abdominal pain R10.30 Israel Godoy MD [address] [place] [address] [id number] 02/14/2024 Israel Godoy Left inguinal hernia K40.90 and Aortic atherosclerosis I70.0 Israel Godoy MD [address] [id number] 07/10/2024 Israel Godoy Monocytosis D72.821 ; Inguinal hernia, left K40.90 ; New onset atrial fibrillation I48.91 ; Essential (primary) hypertension I10 ; Colon cancer screening Z12.11 and Depression screening Z13.31 Israel Godoy MD [address] [place] [id number] 09/29/2024 Israel Godoy Scabies B86 Israel Godoy MD [address] [id number] 11/14/2024 Israel Godoy Encounter for administration of vaccine Z23 and Eczema L30.9 Assessments Encounter Date Diagnosis (ICD Code) Assessment Notes Treatment Notes Treatment Clinical Notes Section Notes 01/11/2024 Blood tests prior to treatment or procedure (ICD-10 - Z01.812) Patient allergic to IVP dye so [facility] needed a new Order. faxed to [phone] 01/11/2024 Lower abdominal pain (ICD-10 - R10.30) 07/03/2024 Pure hypercholesterolemia (ICD-10 - E78.00) 01/10/2024 Lower abdominal pain (ICD-10 - R10.30) THE ORDER HAS BEEN FAXED TO C[facility], PATIENT INFORMED 02/14/2024 Left inguinal hernia (ICD-10 - K40.90) at present not having any symptoms. have discuseed the reason for fixing them and what to be aware of, will continue to monitor 02/14/2024 Aortic atherosclerosis (ICD-10 - I70.0) discussed the need for statins. is going to check and get back to me 07/10/2024 Monocytosis (ICD-10 - D72.821) remains stable, will continue to monitor 07/10/2024 Inguinal hernia, lef t (ICD-10 - K40.90) occasional pain/ not going to have anything done at present 09/29/2024 Scabies (ICD-10 - B86) patient verbalized understanding of medication and directions for use 11/14/2024 Encounter for administration of vaccine (ICD-10 - Z23) HD flu vaccine admnistered 11/14/2024 Eczema (ICD-10 - L30.9) has appt with derm in one month, verbalized understandngofmedication and directions for use 07/03/2024 Essential (primary) hypertension (ICD-10 - I10) 07/10/2024 New onset atrial fibrillation (ICD-10 - I48.91) stable, will continue current regiment 07/03/2024 Prostatism (ICD-10 - N40.0) 07/10/2024 Essential (primary) hypertension (ICD-10 - I10) stable, will continue current regiment 07/03/2024 Thrombocytopenia (ICD-10 - D69.6) 07/10/2024 Colon cancer screening (ICD-10 - Z12.11) guaiac negative 07/10/2024 Depression screening (ICD-10 - Z13.31) negative screen Plan Of Treatment Pending Test Test Name Order Date Electrocardiogram (EKG) 04/10/2017 Electrocardiogram (EKG) 04/12/2018 Electrocardiogram (EKG) 02/20/2014 Electrocardiogram (EKG) 03/18/2015 CARDIOVASCULAR STRESS TEST 12/13/2018 CT ABD & PELVIS WITH CONTRAST 01/10/2024 MRI BRAIN W&WO CONTRAST 05/24/2021 XR CHEST 2 VIEW PA & LAT 04/10/2017 ECHO 04/10/2017 CT abdomen pelvis wo con 01/11/2024 Next Appt Details Provider Name:Israel Cortez ier, 01/12/2025 09:00:00 AM, [address] [place] [address], [address], [place], [place], [phone], Provider Name:Israel Cortez ier, 07/06/2025 07:15:00 AM, [address] [place] [address], Suite [facility], [place], [place], [phone], Provider Name:Israel Cortez ier, 07/13/2025 09:30:00 AM, [address] [place] [address], [address], [place], [place], [phone], Insurance Providers Payer Name Payer Address Payer Phone Subscriber Number Group Number Insured Name Patient Relationship to Insured Coverage Start Date Coverage End Date MEDICARE NHIC JAS [address] [place] [address] [id number] Kevin Neil Self - patient is the insured [facility] [address] [place] [phone] [id number] Kevin Neil Self - patient is the insured Medical (General) History Medical History History ICD Code tubular adenoma 2007 colonoscopy 01/17/2012 - rep eat in 5 years; 11/2017 - pt will not do another colonoscopy
== END 2024-12-25 14:28 | disposition home or self-care (01) ==
LOC: HO.HCS 14:07
PROVIDERS: PCP Internal Medicine; Visit Provider Internal Medicine
DX: I48.91 Unspecified atrial fibrillation (principal)
CPT/HCPCS: 93010; 99213

== ENCOUNTER → 2024-12-25 14:07 | Outpatient (BNVA) | payer MEDICARE, OTHER, SELFPAY | PROVIDERS: PCP Internal Medicine; Visit Provider Internal Medicine | DX: I48.91 Unspecified atrial fibrillation (principal); Z79.01 Long term (current) use of anticoagulants; Z87.891 Personal history of nicotine dependence | CPT/HCPCS: 93005; 99212 ==

== ENCOUNTER 2024-12-31 14:12 | Outpatient (REF) | payer MEDICARE, OTHER, SELFPAY ==
--- OUTSIDE RECORDS SUMMARY | 2023-10-05 03:15 | XMS_ITS ---
Author Organization Israel Godoy MD Address [address] [place], [place] [phone] Care Team Providers Care Quality Assurance Assistant Name Role Phone Israel Godoy Primary Care Provider Results Component Value Reference Range Notes Complete Blood Count Auto Di ff Reviewed date:10/05/2023 12:57:23 PM Interpretation: Performing Lab:[facility], [address] [place] [phone] Notes/Report: White Blood Count 4.5 4.8-10.8 X10*3/uL Red Blood Count 4.11 4.60-5.80 X10*6/uL Hemoglobin 13.0 14.0-18.0 g/dl Hematocrit 37.7 42.0-52.0 % Mean Corpuscular Volume 91.7 80.0-98.0 fL Mean Corpuscular Hemoglobin 31.6 27.0-33.0 pg Mean Corpuscular HGB Conc 34.5 31.0-36.0 g/dl Red Cell Distribution Width 14.6 11.0-16.0 % Platelet Count 139 160-400 X10*3/uL Mean Platelet Volume 11.0 9.4-12.4 fL Neutrophils Percent Auto 49.9 45-73 % Imm Gran Pct Auto 0.2 0.0-0.4 % Lymphocytes Percent Auto 22.3 20-40 % Monocytes Percent Auto 17.3 2-11 % Eosinophils Percent Auto 8.8 0-4 % Basophils Percent Auto 1.5 0-2 % NRBC Pct Auto 0.0 0.0-0.2 /100WBC Neutrophils Absolute Auto 2.3 2.0-8.3 x10*3/u L Imm Gran Abs Auto 0.01 0.00-0.03 X10*3/uL Lymphocytes Absolute Auto 1.0 1.2-4.9 X10*3/u L Monocytes Absolute Auto 0.8 0.1-1.2 X10*3/uL Eosinophils Absolute Auto 0.4 0.0-0.4 X10*3/u L Basophils Absolute Auto 0.1 0.0-0.2 X10*3/uL NRBC Abs Auto 0.000 0.0-0.012 X10*3/uL REASON FOR VISIT CBC with diff Encounters Encounter Location Date Provider Diagnosis Israel Godoy MD [address] [place] [phone] 10/05/2023 Israel Godoy Thrombocytopenia D69 .6 Assessments Encounter Date Diagnosis (ICD Code) Assessment Notes Treatment Notes Treatment Clinical Notes Section Notes 10/05/2023 Thrombocytopenia (ICD-10 - D69.6) Plan Of Treatment Next Appt Details Provider Name:Israel Cortez ier, 01/12/2025 09:00:00 AM, [address] [place] [address], [phone], Provider Name:Israel Cortez ier, 07/06/2025 07:15:00 AM, [address] [place] [address], [phone], Provider Name:Israel Cortez ier, 07/13/2025 09:30:00 AM, [address] [place] [address], [phone], Progress Notes * Kevin NEIL PDOB:[birth year] (79 yo M)Acc No.[id number]:10/05/2023 Progress Note Patient: Kevin LAW Provider: Arturo Godoy MD :1945 A ge:78 Y S ex:Male Date:10/05/2023 Address:[address] [place], [place] [phone] Subjective: * Chief Complaints: * 1 . CBC with diff. * Medical History: Objective: * Vitals: Assessment: * Assessment: 1. T hrombocytopenia - D69.6 (Primary) Plan: * Treatment: * Procedure Codes: 3 6415 VENIPUNCT, ROUTINE* * * The named appointment provid er may or may not be the originator of this progress note, and it is not deemed complete until electronically signed by the appointment provider. Sign off status: Pending * Provider: Arturo Godoy MD Date: 0 10/05/2023 Generated for Latha juarez/Jim/Jt on: 06:20 PM EDT
--- OUTSIDE RECORDS SUMMARY | 2023-10-28 16:13 | XMS_ITS ---
Author Organization Israel Godoy MD Address [address] [place] [phone] Care Team Providers Care Easter Bunny Name Role Phone Israel Godoy Primary Care Provider REASON FOR VISIT New Refill Request Medications Medication SIG (Take, Route, Frequency, Duration) Notes Start Date End Date Status Eliquis 5 MG TAKE 1 TABLET BY JAMES TH TWICE A DAY Orally twice a day for 30 days A ctive Encounters Encounter Location Date Provider Diagnosis Israel Godoy MD [address] [place] [address] [address] [place] [phone] 10/28/2023 Israel Godoy Plan Of Treatment Medication Medication Name Sig Start Date Stop Date Notes Eliquis 5 MG TAKE 1 TABLET BY JAMES TH TWICE A DAY Orally twice a day for 30 days Next Appt Details Provider Name:Israel grider, 01/12/2025 09:00:00 AM, [address] [place] [address], [phone], Provider Name:Israel grider, 07/06/2025 07:15:00 AM, [address] [place] [address], [phone], Provider Name:Israel grider, 07/13/2025 09:30:00 AM, [address] [place] [address], [phone], Progress Notes * Kevin NEIL PDOB:[birth year] (78 yo M)Acc No.[id number]:10/28/2023 Patient: Ozzie Kevin guevara :1945 A ge:78 Y S ex:Male Address:[address] [place] [id number] * Refills Refill Eliquis Tablet, 5 MG, Orally, 60, TAKE 1 TABLET BY MOUTH TWICE A DAY, twice a day, 30 days, Refills=3 * true * Date: Generated for Latha juarez/Jim/Tgitting on: 06:20 PM EDT
--- OUTSIDE RECORDS SUMMARY | 2023-11-09 03:45 | XMS_ITS ---
Author Organization Israel Godoy MD Address [address] [place], [place] [id number] Care Team Providers Care Supply Service Worker Name Role Phone Israel Godoy Primary Care Provider [phone] Results Component Value Reference Range Notes Complete Blood Count Auto Di ff Reviewed date:11/11/2023 12:37:11 PM Interpretation: Performing Lab:[facility], [address] [place] [phone] Notes/Report: White Blood Count 4.2 4.8-10.8 X10*3/uL Red Blood Count 4.16 4.60-5.80 X10*6/uL Hemoglobin 13.3 14.0-18.0 g/dl Hematocrit 38.5 42.0-52.0 % Mean Corpuscular Volume 92.5 80.0-98.0 fL Mean Corpuscular Hemoglobin 32.0 27.0-33.0 pg Mean Corpuscular HGB Conc 34.5 31.0-36.0 g/dl Red Cell Distribution Width 14.6 11.0-16.0 % Platelet Count 142 160-400 X10*3/uL Mean Platelet Volume 10.9 9.4-12.4 fL Neutrophils Percent Auto 48.9 45-73 % Imm Gran Pct Auto 0.2 0.0-0.4 % Lymphocytes Percent Auto 22.9 20-40 % Monocytes Percent Auto 17.6 2-11 % Eosinophils Percent Auto 8.7 0-4 % Basophils Percent Auto 1.7 0-2 % NRBC Pct Auto 0.0 0.0-0.2 /100WBC Neutrophils Absolute Auto 2.0 2.0-8.3 x10*3/u L Imm Gran Abs Auto 0.01 0.00-0.03 X10*3/uL Lymphocytes Absolute Auto 1.0 1.2-4.9 X10*3/u L Monocytes Absolute Auto 0.7 0.1-1.2 X10*3/uL Eosinophils Absolute Auto 0.4 0.0-0.4 X10*3/u L Basophils Absolute Auto 0.1 0.0-0.2 X10*3/uL NRBC Abs Auto 0.000 0.0-0.012 X10*3/uL REASON FOR VISIT 1 month repeat CBC Encounters Encounter Location Date Provider Diagnosis Israel Godoy MD [address] [place] [address] [place] [phone] 11/09/2023 Israel Godoy Thrombocytopenia D69 .6 Assessments Encounter Date Diagnosis (ICD Code) Assessment Notes Treatment Notes Treatment Clinical Notes Section Notes 11/09/2023 Thrombocytopenia (ICD-10 - D69.6) Plan Of Treatment Next Appt Details Provider Name:Israel Cortez ier, 01/12/2025 09:00:00 AM, [address] [place] [address], [phone], Provider Name:Israel Cortez ier, 07/06/2025 07:15:00 AM, [address] [place] [address], [phone], Provider Name:Israel Cortez ier, 07/13/2025 09:30:00 AM, [address] [place] [address], [phone], Progress Notes * Kevin NEIL PDOB:[birth year] (79 yo M)Acc No.[id number]:11/09/2023 Progress Note Patient: Kevin LAW Provider: Arturo Godoy MD :1945 A ge:78 Y S ex:Male Date:11/09/2023 Address:[address] [place], [place] [phone] Subjective: * Chief Complaints: * 1 . 1 month repeat CBC. * Medical History: Objective: * Vitals: Assessment: [...] * Provider: Arturo Godoy MD Date: 0 11/09/2023 Generated for Latha juarez/Jim/Jt on: 06:21 PM EDT
--- OUTSIDE RECORDS SUMMARY | 2024-01-10 06:45 | XMS_ITS ---
Author Organization Israel Godoy MD Address [address] [place], [place] [phone] Care Team Providers Care Heavy Threader Name Role Phone Israel Godoy Primary Care Provider Allergies Allergen (clinical drug ingredient) Drug/Non Drug Allergy documented on EMR Reaction Allergy Type Onset Date Status sulfacetamide Sulfacetamide Sodium rash Drug Allergy Active IV dye (uncoded) rash Allergy Act yael Results Component Value Reference Range Notes Urinalysis and Microscopic Reviewed date:01/10/2024 04:44:43 PM Interpretation: Performing Lab:[facility], [address] [place] [phone] Notes/Report: Color Urine Yellow Appearance Urine Clear PH 5.5 5.0-9.0 Glucose Urine UA Negative Negative mg/dL Urine Blood Negative Negative Specific [place] - Urine <= 1.005 1.005-1.025 Urine Protein Negative Neg-Trace mg/dL Urine Ketones Negative Negative mg/dL Nitrite Urine Negative Negative Leukocyte Esterase Urine Negative Negative RBC Urine 0-2 0-2 /HPF WBC Urine 0-5 0-5 /HPF Squamous Epithelial Cell Urine 0-2 0-2 /HPF Bacteria Urine None Seen None Seen Hyaline Casts Urine 0-2 0-2 /LPF Urine Culture Reviewed date:01/11/2024 01:03:29 PM Interpretation: Performing Lab:[address] [phone] Notes/Report: Urine Culture No growth. REASON FOR VISIT 6 month Medications Medication SIG (Take, Route, Frequency, Duration) Notes Start Date End Date Status Metoprolol Tartrate 50 MG 1 tablet with food Orally once a day Active Furosemide 20 MG TAKE 1 TABLET BY JAMES TH EVERY DAY FOR 30 DAYS Active Eliquis 5 MG TAKE 1 TABLET BY JAMES TH TWICE A DAY for 30 Active Nitrostat 0.4 MG as directed Sublingu al for chest pain every 5 min up to 3 for 10 days 12/13/2018 Not-Jose juarez Vital Signs Blood pressure systolic 124 mm Hg 01/10/20 24 Blood pressure diastolic 58 mm Hg 024 Height 70 in 01/10/2024 Weight 145 lbs 01/10/2024 BMI 20.80 kg/m2 01/10/2024 Encounters Encounter Location Date Provider Diagnosis Israel Godoy MD [address] [place] [phone] 01/10/2024 Israel Godoy Lower abdominal pain R10.30 Assessments Encounter Date Diagnosis (ICD Code) Assessment Notes Treatment Notes Treatment Clinical Notes Section Notes 01/10/2024 Lower abdominal pain (ICD-10 - R10.30) THE ORDER HAS BEEN FAXED TO [facility], PATIENT INFORMED Plan Of Treatment Treatment Notes Assessment Notes Lower abdominal pain THE ORDER HAS BEEN FAXED TO [facility], PATIENT INFORMED Pending Test Test Name Order Date CT ABD & PELVIS WITH CONTRAST 01/10/2024 Next Appt Details Follow Up: 6 Weeks, Reason: Provider Name:Israel grider, 01/12/2025 09:00:00 AM, [address] [place] [address], [address], [phone], Provider Name:Israel grider, 07/06/2025 07:15:00 AM, [address] [place] [address], [phone], Provider Name:Israel grider, 07/13/2025 09:30:00 AM, [address] [place] [address], [address], [phone], Progress Notes * Kevin NEIL PDOB:[birth year] (78 yo M)Acc No.[id number]:01/10/2024 Progress Notes Patient: Kevin Knapp Benji Provider: Arturo Godoy MD :1945 A ge:78 Y S ex:Male Date:01/10/2024 Address:[address] [place], [place] [address], [phone] Subjective: * Chief Complaints: * 6 month * HPI: S ymptom(s): patient is a 78 yo male here for 6 month follow up visit, since last visit most days at some point gets burning sensation in left groin. not related to uriantion.. bowels are very regular. occasionally gets gas and with that may get a little stool not related to burning in left groin/ lasts about 30 mins. once or twice per day. * ROS: G eneral/Constitutional: Denies C hills. D enies F atigue. D enies F ever. D enies H eadache. E NT: Patient denies d ecreased sense of smell , any loss of taste , sore throat. D enies S ore throat. R espiratory: Denies C ough. D enies S hortness of breath at rest. D enies S hortness of breath with exertion. G astrointestinal: Denies D iarrhea. D enies N ausea. M usculoskeletal: Patient denies m uscle aches. P atient complaining of?if he doesn't use support hose the left leg gets swollen. . P eripheral Vascular: Patient denies r ed and blue toes. * Medical History: * Surgical History: * Hospitalization/Major Diagno stic Procedure: * Medications: T akingMetoprolol Tartrate 50 MG Tablet 1 tablet with food Orally once a dayFurosemide 20 MG Tablet TAKE 1 TABLET BY MOUTH EVERY DAY FOR 30 DAYS Eliquis 5 MG Tablet TAKE 1 TABLET BY MOUTH TWICE A DAY Taking Metoprolol Tartrate 50 MG Tablet 1 tablet with food Orally once a dayTaking Furosemide 20 MG Tablet TAKE 1 TABLET BY MOUTH EVERY DAY FOR 30 DAYS Taking Eliquis 5 MG Tablet TAKE 1 TABLET BY MOUTH TWICE A DAY Not-Taking/PRNNitrostat 0.4 MG Tablet Sublingual as directed Sublingual for chest pain every 5 min up to 3Medication List reviewed and reconciled with the patientNot-Taking/PRN Nitrostat 0.4 MG Tablet Sublingual as directed Sublingual for chest pain every 5 min up to 3Medication List reviewed and reconciled with the patient * Allergies: S ulfacetamide Sodium: rashIV dye: rashyes[Allergies Verified] Objective: * Vitals: H t: 70, Wt:145, BMI:20.80, BP:124/58. * Examination: G eneral Examination: GENERAL APPEARANCE: a lert, well hydrated, in no distress , male. HEAD: n ormocephalic. HEART: n o murmurs, rubs, gallops , regular rate and rhythm. LUNGS: n o wheezes, rales, rhonchi , good air movement , clear to auscultation bilaterally. ABDOMEN: s oft, nontender, nondistended , no masses palpable. Assessment: * Assessment: 1. Mateo cortes abdominal pain - R10.30 (Primary) Plan: * Treatment: * Procedure Codes: * Follow Up: 6 Weeks * * Sign off status: Completed true * Provider: Arturo Godoy MD Date: 03/11/2023 Generated for Latha juarez/Jim/Haroonsmitting on: 06:19 PM EDT History and Physical Notes * HPI (History of Present Illness) Category Sub-Category Detail Notes Category Not es Symptom(s) patient is a 78 yo male here for 6 month follow up visit, since last visit most days at some point gets burning sensation in left groin. not related to uriantion.. bowels are very regular. occasionally gets gas and with that may get a little stool not related to burning in left groin/ lasts about 30 mins. once or twice per day Examination Category Sub-Category Detail Notes Category Not es General Examination GENERAL APPEARANCE: alert, w ell hydrated, in no distress , male HEAD: normocephalic HEART: no murmurs, rubs, ga llops , regular rate and rhythm LUNGS: no wheezes, rales, r honchi , good air movement , clear to auscultation bilaterally ABDOMEN: soft, nontender, non distended , no masses palpable
--- OUTSIDE RECORDS SUMMARY | 2024-01-11 03:45 | XMS_ITS ---
Author Organization Israel Godoy MD Address [address] [place] [phone] Care Team Providers Care Machine Worker Name Role Phone Israel Godoy Primary Care Provider Results Component Value Reference Range Notes Blood Urea Nitrogen Reviewed date:01/11/2024 12:35:59 PM Interpretation: Performing Lab:[facility], [address] [place] [phone] Notes/Report: Blood Urea Nitrogen 12 9-16 mg/dL Creatinine Reviewed date:01/11/2024 12:35:49 PM Interpretation: Performing Lab:[facility], [address] [place] [phone] Notes/Report: Creatinine 0.85 0.5-1.4 mg/dL Estimated Glomerular Filt Rate > 60 NOTE: For -[place] individuals, multiply the result by 1.210. Chronic Kidney Disease: Estimated GFR < 60 mL/min/1.73m2 Severe Kidney Disease: Estimated GFR < 15 mL/min/1.73m2 REASON FOR VISIT BUN , CREATININE Encounters Encounter Location Date Provider Diagnosis Israel Godoy MD [address] [place] [phone] 01/11/2024 Israel Godoy Blood tests prior to treatment or procedure Z01.812 and Lower abdominal pain R10.30 Assessments Encounter Date Diagnosis (ICD Code) Assessment Notes Treatment Notes Treatment Clinical Notes Section Notes 01/11/2024 Blood tests prior to treatment or procedure (ICD-10 - Z01.812) Patient allergic to IVP dye so [facility] needed a new Order. faxed to [phone] 01/11/2024 Lower abdominal pain (ICD-10 - R10.30) Plan Of Treatment Treatment Notes Assessment Notes Blood tests prior to treatment or proced ure Patient allergic to IVP dye so [facility] needed a new Order. faxed to [phone] Pending Test Test Name Order Date CT abdomen pelvis wo con 01/11/2024 Next Appt Details Provider Name:Israel Cortez ier, 01/12/2025 09:00:00 AM, [address] [place] [address], Suite [facility], [place], [place], [phone], Provider Name:Israel Cortez ier, 07/06/2025 07:15:00 AM, [address] [place] [address], Suite [facility], [place], [place], [phone], Provider Name:Israel Cortez ier, 07/13/2025 09:30:00 AM, [address] [place] [address], Suite [facility], [place], [place], [phone], Progress Notes * Kevin NEIL PDOB:[birth year] (79 yo M)Acc No.[id number]:01/11/2024 Progress Note Patient: Kevin LAW Provider: Arturo Godoy MD :1945 A ge:78 Y S ex:Male Date:01/11/2024 Address:[address] [place], [place] [phone] Subjective: * Chief Complaints: * 1 . [...] Date: 03/12/2023 Generated for Latha juarez/Jim/eTransmitting on: 06:21 PM EDT
--- OUTSIDE RECORDS SUMMARY | 2024-02-14 06:45 | XMS_ITS ---
Author Organization Israel Godoy MD Address [address] [place] [phone] Care Team Providers Care Balance Bridge Inspector Name Role Phone Israel Godoy Primary Care Provider [phone] Allergies Allergen (clinical drug ingredient) Drug/Non Drug Allergy documented on EMR Reaction Allergy Type Onset Date Status sulfacetamide Sulfacetamide Sodium rash Drug Allergy Active IV dye (uncoded) rash Allergy Act yael REASON FOR VISIT 6 WK F/U/ CBACK CT SCAN ABDOMEN Medications Medication SIG (Take, Route, Frequency, Duration) Notes Start Date End Date Status Metoprolol Tartrate 50 MG 1 tablet with food Orally once a day Active Furosemide 20 MG TAKE 1 TABLET BY JAMES TH EVERY DAY FOR 30 DAYS Active Nitrostat 0.4 MG as directed Sublingu al for chest pain every 5 min up to 3 for 10 days 12/13/2018 Not-Taki ng Eliquis 5 MG take 1 tablet by james th twice a day Orally Twice a day for 90 days Active Problems Problem Type SNOMED Code ICD Code Onset Dates Problem Status W/U Status Risk Notes Problem 45585789 Aortic atherosclerosis (I70.0) Active confirmed Vital Signs Blood pressure systolic 118 mm Hg 02/14/20 24 Blood pressure diastolic 60 mm Hg 024 Height 70 in 02/14/2024 Weight 146 lbs 02/14/2024 BMI 20.95 kg/m2 02/14/2024 Encounters Encounter Location Date Provider Diagnosis Israel Godoy MD [address] [place] [phone] 02/14/2024 Israel Godoy Left inguinal hernia K40.90 and Aortic atherosclerosis I70.0 Assessments Encounter Date Diagnosis (ICD Code) Assessment Notes Treatment Notes Treatment Clinical Notes Section Notes 02/14/2024 Left inguinal hernia (ICD-10 - K40.90) at present not having any symptoms. have discuseed the reason for fixing them and what to be aware of, will continue to monitor 02/14/2024 Aortic atherosclerosis (ICD-10 - I70.0) discussed the need for statins. is going to check and get back to me Plan Of Treatment Medication Medication Name Sig Start Date Stop Date Notes Eliquis 5 MG take 1 tablet by james th twice a day Orally Twice a day for 90 days Treatment Notes Assessment Notes Left inguinal hernia at present not havi ng any symptoms. have discuseed the reason for fixing them and what to be aware of, will continue to monitor Aortic atherosclerosis discussed the nee d for statins. is going to check and get back to me Next Appt Details Provider Name:Israel grider, 01/12/2025 09:00:00 AM, [address] [place] [address], [address] [place] [address], [phone], Provider Name:Israel grider, 07/06/2025 07:15:00 AM, [address] [place] [address], Suite [facility], [place], [place], [phone], Provider Name:Israel mendozar, 07/13/2025 09:30:00 AM, [address] [place] [address], Suite [facility], [place], [place], [phone], Progress Notes * Kevin NEIL PDOB:[birth year] (78 yo M)Acc No.[id number]:02/14/2024 Patient: Ozzie Kevin guevara Provider: Arturo Godoy MD :1945 A ge:78 Y S ex:Male Date:02/14/2024 Address:[address] [place], [place] [phone] Subjective: * Chief Complaints: * 6 WK F/U/ CBACK CT SCAN ABDOMEN * HPI: S ymptom(s): patient is a 78 yo male here for 6 week follow up visit, had burning in left inguinal area. is doing better at present. was getting pain on standing. * ROS: G eneral/Constitutional: Denies C hills. D enies F atigue. D enies F ever. D enies H eadache. E NT: Patient denies d ecreased sense of smell , any loss of taste , sore throat. D enies S ore throat. R espiratory: Denies C ough. D enies S hortness of breath at rest. D enies S hortness of breath with exertion. C ardiovascular: Denies C hest pain at rest. D enies C hest pain with exertion. D enies D izziness. D enies P alpitations. D enies S hortness of breath. G astrointestinal: Denies D iarrhea. D enies N ausea. M usculoskeletal: Patient denies m uscle aches. P eripheral Vascular: Patient denies r ed [...] * Allergies: S ulfacetamide Sodium: rashIV dye: harsha[Allergies Verified] Objective: * Vitals: H t: 70, Wt:146, BMI:20.95, BP:118/60. * Examination: G eneral Examination: GENERAL APPEARANCE: a lert, well hydrated, in no distress.? HEAD: n ormocephalic. SKIN: g ood turgor. HEART: r egular rate and rhythm , no murmurs, rubs, gallops. LUNGS: n o wheezes, rales, rhonchi , good air movement , clear to auscultation bilaterally. ABDOMEN: a bnormal with left inguinal hernia. ? Assessment: * Assessment: 1. L eft inguinal hernia - K40.90 (Primary) 2 . A ortic atherosclerosis - I70.0 Plan: * Treatment: 2. A ortic atherosclerosis Notes: discussed the need for statins. is going to check and get back to me 3. O thers Refill Eliquis Tablet, 5 MG, take 1 tablet by mouth twice a day, Orally, Twice a day, 90 days, 180, Refills 3. * Procedure Codes: * * Sign off status: Completed true * Provider: Arturo Godoy MD Date: 04/16/2023 Generated for Latha juarez/Jim/Jt on: 06:20 PM EDT History and Physical Notes * HPI (History of Present Illness) Category Sub-Category Detail Notes Category Not es Symptom(s) patient is a 78 yo male here for 6 week follow up visit, had burning in left inguinal area. is doing better at present. was getting pain on standing. Examination Category Sub-Category Detail Notes Category Not es General Examination GENERAL APPEARANCE: alert, w ell hydrated, in no distress HEAD: normocephalic HEART: regular rate and rhy thm , no murmurs, rubs, gallops LUNGS: no wheezes, rales, r honchi , good air movement , clear to auscultation bilaterally ABDOMEN: abnormal with left i nguinal hernia SKIN: good turgor
--- OUTSIDE RECORDS SUMMARY | 2024-07-03 04:00 | XMS_ITS ---
Author Organization Israel Godoy MD Address [address] [place], [place] [phone] Care Team Providers Care Patient Safety Attendant Name Role Phone Israel Godoy Primary Care Provider [phone] Results Component Value Reference Range Notes Complete Blood Count Auto Di ff Reviewed date:07/03/2024 04:58:58 PM Interpretation: Performing Lab:[facility], [address] [place] [phone] Notes/Report: White Blood Count 4.8 4.8-10.8 X10*3/uL [...] NRBC Abs Auto 0.000 0.0-0.012 X10*3/uL Comprehensive [place]. Panel Fa st Reviewed date:07/03/2024 05:03:37 PM Interpretation: Performing Lab:[facility], [address] [place] [phone] Notes/Report: Sodium 134 135-145 mmol/L Potassium 4.0 [...] Panel Reviewed date:07/03/2024 04:47:31 PM Interpretation: Performing Lab:[facility], [address] [place] [phone] Notes/Report: Triglycerides 53 <150 mg/dL Desirable Triglyceride: [...] (Free>4and<10) Reviewed date:07/03/2024 04:48:34 PM Interpretation: Performing Lab:[facility], [address] [place] [phone] Notes/Report: PSA,Total (Free>4and<10) 0.40 0.00-4.00 ng/mL A [...] t Reviewed date:07/03/2024 05:00:22 PM Interpretation: Performing Lab:[facility], [address] [place] [phone] Notes/Report: Urine, Clean Catch Color Urine Yellow Appearance Urine Clear PH 7.0 5.0-9.0 Glucose Urine UA Negative Negative mg/dL Urine Blood Negative Negative Specific [place] - Urine 1.015 1.005-1.025 Urine Protein Negative [...] Location Date Provider Diagnosis Israel Godoy MD [address] [place] [address] [place] [phone] 07/03/2024 Israel Godoy Pure hypercholestero lemia E78.00 [...] Provider Name:Israel Cortez ier, 01/12/2025 09:00:00 AM, [address] [place] [address], [address], [phone], Provider Name:Israel Cortez ier, 07/06/2025 07:15:00 AM, [address] [place] [address], [address], [phone], Provider Name:Israel Cortez ier, 07/13/2025 09:30:00 AM, [address] [place] [address], [address], [phone], Progress Notes * KIRKKevin PDOB:[birth year] (79 yo M)Acc No.[id number]:07/03/2024 Progress Note Patient: Kevin LAW Provider: Arturo Godoy MD :1945 A ge:79 Y S ex:Male Date:07/03/2024 Address:[address] [place], [place] [phone] Subjective: * Chief Complaints: * 1 . [...] - 07/03/2024 08:00 AM) L AB: Comprehensive [place]. Panel Fast (Collection Date & Time - [...] - 07/03/2024 08:00 AM) L AB: Comprehensive [place]. Panel Fast (Collection Date & Time - [...] - 07/03/2024 08:00 AM) L AB: Comprehensive [place]. Panel Fast (Collection Date & Time - [...] 07/03/2024 Generated for Latha juarez/Jim/Jt on: 1 06:20 PM EDT
--- OUTSIDE RECORDS SUMMARY | 2024-07-10 05:30 | XMS_ITS ---
Author Organization Israel Godoy MD Address [address] [place], [place] [phone] Care Team Providers Care Blending Line Attendant Name Role Phone Israel Godoy Primary Care Provider Allergies Allergen (clinical drug ingredient) Drug/Non Drug Allergy documented on EMR Reaction Allergy Type Onset Date Status sulfacetamide Sulfacetamide Sodium rash Drug Allergy Active IV dye (uncoded) rash Allergy Act yael Results Component Value Reference Range Notes Occult Blood, Stool, Guaiac Reviewed date:07/10/2024 10:52:19 AM Interpretation:Negative Performing Lab: Notes/Report: Negative Occult Blood, Stool, Guaiac Neg REASON FOR VISIT review labs Medications Medication SIG (Take, Route, Frequency, Duration) Notes Start Date End Date Status Nitrostat 0.4 MG as directed Sublingu al for chest pain every 5 min up to 3 for 10 days 12/13/2018 Not-Taki ng Metoprolol Tartrate 50 MG 1 tablet with food Orally once a day Active Furosemide 20 MG TAKE 1 TABLET BY JAMES TH EVERY DAY FOR 30 DAYS Active Eliquis 5 MG take 1 tablet by james th twice a day Orally Twice a day Active Social History Tobacco Use: Social History Observation Description Date Details (start date - stop date) Former Smoker NA - NA Tobacco Use/Smoking Question Answer Notes Patient is a former smoker How long has it been since y ou last smoked? > 10 years Additional Findings: Tobacco Non-User Fo rmer smoker, currently using no form of tobacco Alcohol Screen Question Answer Notes Did you have a drink contain ing alcohol in the past year? Yes How often did you have a dri nk containing alcohol in the past year? Monthly or less (1 point) How many drinks did you have on a typical day when you were drinking in the past year? 1 or 2 drinks (0 point) How often did you have 6 or more drinks on one occasion in the past year? Never (0 point) Points 1 Interpretation Negative Vital Signs Blood pressure systolic 122 mm Hg 07/11/19 25 Blood pressure diastolic 50 mm Hg 025 Height 70 in 07/10/2024 Weight 148 lbs 07/10/2024 BMI 21.23 kg/m2 07/10/2024 weight is up 2 pounds since 02-14-24 Encounters Encounter Location Date Provider Diagnosis Israel Godoy MD [address] [place] [address] Drive [address] [place], [place] [phone] 07/10/2024 Israel Godoy Monocytosis D72.821 ; Inguinal hernia, left K40.90 ; New onset atrial fibrillation I48.91 ; Essential (primary) hypertension I10 ; Colon cancer screening Z12.11 and Depression screening Z13.31 Assessments Encounter Date Diagnosis (ICD Code) Assessment Notes Treatment Notes Treatment Clinical Notes Section Notes 07/10/2024 Monocytosis (ICD-10 - D72.821) remains stable, will continue to monitor 07/10/2024 Inguinal hernia, left (ICD-10 - K40.90) occasional pain/ not going to have anything done at present 07/10/2024 New onset atrial fibrillation (ICD-10 - I48.91) stable, will continue current regiment 07/10/2024 Essential (primary) hypertension (ICD-10 - I10) stable, will continue current regiment 07/10/2024 Colon cancer screening (ICD-10 - Z12.11) guaiac negative 07/10/2024 Depression screening (ICD-10 - Z13.31) negative screen Plan Of Treatment Medication Medication Name Sig Start Date Stop Date Notes Metoprolol Tartrate 50 MG 1 tablet with food Orally once a day Furosemide 20 MG TAKE 1 TABLET BY JAMES TH EVERY DAY FOR 30 DAYS Eliquis 5 MG take 1 tablet by james th twice a day Orally Twice a day Treatment Notes Assessment Notes Monocytosis remains stable, will continue to monitor Inguinal hernia, left occasional pain/ n ot going to have anything done at present New onset atrial fibrillation stable, wi ll continue current regiment Essential (primary) hypertension stable, will continue current regiment Colon cancer screening guaiac negative Depression screening negative screen Next Appt Details Follow Up: 6 Months, Reason: Provider Name:Israel Cortez ier, 01/12/2025 09:00:00 AM, [address] [facility], [address] [facility], [place], [place], [phone], Provider Name:Israel grider, 07/06/2025 07:15:00 AM, [address] [facility], [address] [facility], [place], [place], [phone], Provider Name:Israel Cortez ier, 07/13/2025 09:30:00 AM, [address] [facility], [address] [facility], [place], [place], [phone], Progress Notes * Kevin NEIL PDOB:[birth year] (79 yo M)Acc No.[id number]:07/10/2024 Patient: Kevin LAW Provider: Arturo Godoy MD :1945 A ge:79 Y S ex:Male Date:07/10/2024 Address:[address] [place], [place] [phone] Subjective: * Chief Complaints: * R eview labs * HPI: D epression Screening: PHQ-9 L ittle interest or pleasure in doing things N ot at all, F eeling down, depressed, or hopeless N ot at all, T rouble falling or staying asleep, or sleeping too much N ot at all, F eeling tired or having little energy N ot at all, P oor appetite or overeating N ot at all, F eeling bad about yourself or that you are a failure, or have let yourself or your family down N ot at all, T rouble concentrating on things, such as reading the newspaper or watching television N ot at all, M oving or speaking so slowly that other people could have noticed; or the opposite, being so fidgety or restless that you have been moving around a lot more than usual N ot at all, T houghts that you would be better off or of hurting yourself in some way N ot at all, T otal Score 0 . I nterpretation and Intervention D epression Screening Findings N egative, F ollow-Up for Depression : review of PHQ-9 found negative result, no follow-up needed. C ommunication Needs: Communication Needs D oes the patient have a hearing impairment N o, D oes the patient have a vision impairment? Y es, I f yes, what is the vision impairment? G lasses, D oes the patient have a cognition impairment? N o. F all Risk: History H ave you had any falls with injury in the past year? N o, H ave you had two or more falls in the past year? N o. S CABRERA Questions: SDOH Questions I n the past year have you been worried about losing housing? N o, I n the past year have you or any family members you live with been unable to get any of the following when it was really needed? Check all that apply: N one. S ymptom(s): patient is a 79 yo male here for visit with review of recent labs and follow up of chronic issues. * ROS: G eneral/Constitutional: Change in appetite d enies. C hills d enies. F ever d enies. O phthalmologic: Blurred vision d enies. D ischarge d enies. P ain d enies. E NT: Decreased hearing d enies. S ore throat d enies.?Swollen glands d enies. E ndocrine: Cold intolerance d enies. E xcessive thirst d enies. H eat intolerance d enies. W eight loss d enies. R espiratory: Cough d enies. S hortness of breath at rest d enies. S hortness of breath with exertion d enies. W heezing d enies. C ardiovascular: Chest pain at rest d enies. C hest pain with exertion?denies. I rregular heartbeat d enies. S hortness of breath d enies. ? G astrointestinal: Abdominal pain d enies. C hange in bowel habits d enies. D iarrhea d enies. N ausea d enies. R ectal bleeding d enies. V omiting d enies . G enitourinary: Blood in urine d enies. D ifficulty urinating d enies. F requent urination d enies. M usculoskeletal: Painful joints d enies. W eakness d enies. ? S kin: Dry skin d enies. I tching d enies. D enies?Mole(s), changes in moles, new moles or any lesions of concern. D enies P hotosensitivity. R joann d enies. N eurologic: Dizziness d enies. F ainting d enies. H eadache?denies. * Medical History: * Surgical History: * Hospitalization/Major Diagno stic Procedure: * Family History: F ather: 68 yrs, diagnosed with CHF. M other: 83 yrs, diagnosed with Hypertension. 1 brother(s) , 1 sister(s) . 1 daughter(s) . . Father- [place] Mother- CVA 1 sister Cardiac, Denies mental health/substance abuse family history, No pertinent family medical history, Denies mental health/substance abuse family history, Denies mental health/substance abuse family history. * Social History: T obacco Use: T obacco Use/Smoking P atient is a f ormer smoker, H ow long has it been since you last smoked? > 10 years, A dditional Findings: Tobacco Non-User F ormer smoker, currently using no form of tobacco. D rugs/Alcohol: A lcohol Screen D id you have a drink containing alcohol in the past year? Y es, H ow often did you have a drink containing alcohol in the past year? M onthly or less (1 point), H ow many drinks did you have on a typical day when you were drinking in the past year? 1 or 2 drinks (0 point), H ow often did you have 6 or more drinks on one occasion in the past year? N ever (0 point), P oints 1 , I nterpretation N egative. M iscellaneous: C affeine: yes, frequency:, 3-4 cups per day. Children: yes. Community involvements: no. Exercise: yes, yard work. Home smoke detector use: yes. Housing: owning. Living with: spouse and daughter some of the year. Marital status: . Occupation: retired. Pets: cat x1. Travel outside of the [place]: no. * Medications: T akingMetoprolol Tartrate 50 MG Tablet 1 tablet with food Orally once a day Eliquis 5 MG Tablet take 1 tablet by mouth twice a day Orally Twice a day Furosemide 20 MG Tablet TAKE 1 TABLET BY MOUTH EVERY DAY FOR 30 DAYS Taking Metoprolol Tartrate 50 MG Tablet 1 tablet with food Orally once a day Taking Eliquis 5 MG Tablet take 1 tablet by mouth twice a day Orally Twice a day Taking Furosemide 20 MG Tablet TAKE 1 TABLET BY MOUTH EVERY DAY FOR 30 DAYS Not-Taking/PRNNitrostat 0.4 MG Tablet Sublingual as directed Sublingual for chest pain every 5 min up to 3 Medication List reviewed and reconciled with the patientNot-Taking/PRN Nitrostat 0.4 MG Tablet Sublingual as directed Sublingual for chest pain every 5 min up to 3 Medication List reviewed and reconciled with the patient * Allergies: S ulfacetamide Sodium: rashIV dye: harsha[Allergies Verified] Objective: * Vitals: H t: 70, Wt: 148, BMI:21.23, BP:122/50, Wt-k.13. weight is up 2 pounds since 02-14-24. * P ast Orders: L ab:UA ClnCatch+Micro w/rflx Cult (Order Date - 07/03/2024) (Collection Date & Time - 07/03/2024 08:00 AM) Value Reference Range Color Urine Yellow - Appearance Urine Clear - PH 7.0 5.0-9.0 - Glucose Urine UA Negative Negative - mg/dL Urine Blood Negative Negative - Specific [place] - Urine 1.015 1.005-1.025 - Urine Protein Negative Neg-Trace - mg/dL Urine Ketones Negative Negative - mg/dL Nitrite Urine Negative Negative - Leukocyte Esterase Urine Negative Negative - RBC Urine 0-2 0-2 - /HPF WBC Urine 0-5 0-5 - /HPF Squamous Epithelial Cell Urine 0-2 0-2 - /HP F Bacteria Urine None Seen None Seen - Hyaline Casts Urine 0-2 0-2 - /LPF L ab:Complete Blood Count Auto Diff (Order Date - 07/03/2024) (Collection Date & Time - 07/03/2024 08:00 AM) Value Reference Range White Blood Count 4.8 4.8-10.8 - X10*3/uL Red Blood Count 4.22 L 4.60-5.80 - X10*6/uL Hemoglobin 13.3 L 14.0-18.0 - g/dl Hematocrit 39.0 L 42.0-52.0 - % Mean Corpuscular Volume 92.4 80.0-98.0 - fL Mean Corpuscular Hemoglobin 31.5 27.0-33.0 - pg Mean Corpuscular HGB Conc 34.1 31.0-36.0 - g/ dl Red Cell Distribution Width 14.4 11.0-16.0 - % Platelet Count 166 160-400 - X10*3/uL Mean Platelet Volume 10.7 9.4-12.4 - fL Neutrophils Percent Auto 49.7 45-73 - % Imm Gran Pct Auto 0.2 0.0-0.4 - % Lymphocytes Percent Auto 20.5 20-40 - % Monocytes Percent Auto 16.8 H 2-11 - % Eosinophils Percent Auto 11.6 H 0-4 - % Basophils Percent Auto 1.2 0-2 - % NRBC Pct Auto 0.0 0.0-0.2 - /100WBC Neutrophils Absolute Auto 2.4 2.0-8.3 - x10* 3/uL Imm Gran Abs Auto 0.01 0.00-0.03 - X10*3/uL Lymphocytes Absolute Auto 1.0 L 1.2-4.9 - X10* 3/uL Monocytes Absolute Auto 0.8 0.1-1.2 - X10*3/ uL Eosinophils Absolute Auto 0.6 H 0.0-0.4 - X10* 3/uL Basophils Absolute Auto 0.1 0.0-0.2 - X10*3/ uL NRBC Abs Auto 0.000 0.0-0.012 - X10*3/uL L ab:Comprehensive [place]. Panel Fast (Order Date - 07/03/2024) (Collection Date & Time - 07/03/2024 08:00 AM) Value Reference Range Sodium 134 L 135-145 - mmol/L Bilirubin Total 1.3 H 0.0-1.0 - mg/dL Aspartate Amino Transferase 34 5-37 - U/L Alanine Aminotransferase 22 0-40 - U/L Total Protein 7.2 6.5-8.0 - g/dL Albumin Level 3.9 3.5-5.0 - g/dL Alkaline Phosphatase 67 39-117 - U/L Potassium 4.0 3.3-5.1 - mmol/L Chloride 101 96-108 - mmol/L Carbon Dioxide 25 22-29 - mmol/L Anion Gap 12 12-20 - Blood Urea Nitrogen 14 9-16 - mg/dL Creatinine 0.80 0.5-1.4 - mg/dL Estimated Glomerular Filt Rate > 60 - Glucose Fasting 87 60-99 - mg/dL Calcium 9.2 8.4-10.2 - mg/dL L ab:Lipid Panel (Order Date - 07/03/2024) (Collection Date & Time - 07/03/2024 08:00 AM) Value Reference Range Triglycerides 53 <150 - mg/dL Cholesterol 175 <200 - mg/dL LDL Cholesterol Calculated 100 H <100 - mg/dL HDL Cholesterol 65 >40 - mg/dL L ab:PSA,Total (Free>4and<10) (Order Date - 07/03/2024) (Collection Date & Time - 07/03/2024 08:00 AM) Value Reference Range PSA,Total (Free>4and<10) 0.40 0.00-4.00 - ng/ mL * Examination: G eneral Examination: GENERAL APPEARANCE: w ell developed, well nourished, in no acute distress. HEAD: n ormocephalic, atraumatic. EYES: p upils equal, round, reactive to light and accommodation, sclera non-icteric. EARS: n ormal. ORAL CAVITY: m ucosa moist. THROAT: c lear. NECK/THYROID: n melissa supple, full range of motion, no cervical lymphadenopathy, no bruits. SKIN: w arm and dry, no suspicious lesions. HEART: r egular rate and rhythm, S1, S2 normal, no murmurs.? LUNGS: c lear to auscultation bilaterally. ABDOMEN: s oft, nontender, nondistended, bowel sounds present, normal, no organomegaly , no masses palpable. RECTAL EXAM: n ormal tone, no external hemorrhoids, no masses palpable, prostate normal, stool guaiac negative. MALE GENITOURINARY: c ircumcised, no testicular mass, testes descended bilaterally with large left inguinal hernia. EXTREMITIES: n o clubbing, cyanosis, or edema. NEUROLOGIC: n onfocal, motor strength normal upper and lower extremities, sensory exam intact. Assessment: * Assessment: 1. M onocytosis - D72.821 (Primary) 2 . I nguinal hernia, left - K40.90? 3. N ew onset atrial fibrillation - I48.91 4 . E ssential (primary) hypertension - I10 5 . C olon cancer screening - Z12.11 6 . D epression screening - Z13.31 Plan: * Treatment: 2. I nguinal hernia, left Notes: occasional pain/ not going to have anything done at present 3. N ew onset atrial fibrillation Continue Eliquis Tablet, 5 MG, take 1 tablet by mouth twice a day, Orally, Twice a day. Notes: stable, will continue current regiment 4. E ssential (primary) hypertension Continue Metoprolol Tartrate Tablet, 50 MG, 1 tablet with food, Orally, once a day; C ontinue Furosemide Tablet, 20 MG, TAKE 1 TABLET BY MOUTH EVERY DAY FOR 30 DAYS. Notes: stable, will continue current regiment 5. C olon cancer screening L AB: Occult Blood, Stool, Guaiac (Collection Date & Time - 07/10/2024) N egative Value Reference Range O ccult Blood, Stool, Guaiac Neg Notes: guaiac negative??6.?Depression screening? Notes: negative screen?? * Procedure Codes: 8 2270 TEST FOR BLOOD, FECES * Follow Up: 6 Months * * Sign off status: Completed true * Provider: Arturo Godoy MD Date: 0 07/10/2024 Generated for Latha juarez/Jim/Tgitting on: 1 06:21 PM EDT History and Physical Notes * HPI (History of Present Illness) Category Sub-Category Detail Notes Category Not es Symptom(s) patient is a 79 yo male here for visit with review of recent labs and follow up of chronic issues. Depression Screening PHQ-9 Little inte rest or pleasure in doing things: Not at all Feeling down, depressed, or hopeless: No t at all Trouble falling or staying asleep, or sl eeping too much: Not at all Feeling tired or having little energy: N ot at all Poor appetite or overeating: Not at all Feeling bad about yourself o r that you are a failure, or have let yourself or your family down: Not at all Trouble concentrating on thi ngs, such as reading the newspaper or watching television: Not at all Moving or speaking so slowly that other people could have noticed; or the opposite, being so fidgety or restless that you have been moving around a lot more than usual: Not at all Thoughts that you would be b jeri off or of hurting yourself in some way: Not at all Total Score: 0 Interpretation and Intervention Depression Jennifernaresh eladio Findings: Negative Follow-Up for Depression: : review of PH Q-9 found negative result, no follow-up needed SDOH Questions SDOH Questions In the past year have you been worried about losing housing?: No In the past year have you or any family members you live with been unable to get any of the following when it was really needed? Check all that apply:: None Fall Risk History Have you had any falls with injury i n the past year?: No Have you had two or more falls in the st year?: No Communication Needs Communication Needs Does the patient have a hearing impairment: No Does the patient have a vision impairmen t?: Yes If yes, what is the vision impairment?: Glasses Does the patient have a cognition impair ment?: No Examination Category Sub-Category Detail Notes Category Not es General Examination GENERAL APPEARANCE: well dev eloped, well nourished, in no acute distress HEAD: normocephalic, atrau matic EYES: pupils equal, round, reactive to light and accommodation, sclera non-icteric EARS: normal THROAT: clear NECK/THYROID: neck supple, full ra nge of motion, no cervical lymphadenopathy, no bruits HEART: regular rate and rhy thm, S1, S2 normal, no murmurs LUNGS: clear to auscultatio n bilaterally ABDOMEN: soft, nontender, non distended, bowel sounds present, normal, no organomegaly , no masses palpable NEUROLOGIC: nonfocal, motor stre ngth normal upper and lower extremities, sensory exam intact SKIN: warm and dry, no justin picious lesions EXTREMITIES: no clubbing, cyanosi s, or edema MALE GENITOURINARY: circumcised, no test icular mass, testes descended bilaterally with large left inguinal hernia RECTAL EXAM: normal tone, no exte rnal hemorrhoids, no masses palpable, prostate normal, stool guaiac negative ORAL CAVITY: mucosa moist
--- OUTSIDE RECORDS SUMMARY | 2024-09-29 07:30 | XMS_ITS ---
Author Organization Israel Godoy MD Address [address] [place] [phone] Care Team Providers Care Office Mover Name Role Phone Israel Godoy Primary Care [...] Not-Taki ng Permethrin 5 % 1 application [facility] ally once for 1 days 09/29/2024 Active Metoprolol Tartrate 50 MG 1 tablet with food Orally once a day Active Eliquis 5 MG take 1 tablet by james th twice a day Orally Twice a day Active Vital Signs Height 70 in 09/29/2024 Weight 145 lbs 09/29/2024 BMI 20.8 kg/m2 09/29/2024 weight is down 3 pounds [facility] e 07-10-24 Encounters Encounter Location Date Provider Diagnosis Israel Godoy MD [address] [facility] [address] [place] [phone] 09/29/2024 Israel Godoy Scabies B86 Assessments Encounter [...] Provider Name:Israel Cortez ier, 01/12/2025 09:00:00 AM, [address] [place] [address], Suite [facility], [place], [place], [phone], Provider Name:Israel Cortez ier, 07/06/2025 07:15:00 AM, [address] [place] [address], Suite [facility], [place], [place], [phone], Provider Name:Israel Cortez ier, 07/13/2025 09:30:00 AM, [address] [place] [address], [place] [address], [place], [place], [phone], Progress Notes * Kevin NEIL PDOB:[birth year] (79 yo M)Acc No.[id number]:09/29/2024 Progress Notes Patient: Kevin LAW Provider: Arturo Godoy MD :1945 A ge:79 Y S ex:Male Date:09/29/2024 Address:[address] [place], [place] [phone] Subjective: * Chief Complaints: * R joann [...] 09/29/2024 Generated for Latha juarez/Jim/Tgitting on: 1 06:21 [...]
--- OUTSIDE RECORDS SUMMARY | 2024-11-14 07:30 | XMS_ITS ---
Author Organization Israel Godoy MD Address [address] [place] [phone] Care Team Providers Care Wic Site Coordinator Name Role Phone Israel Godoy Primary Care [...] Godoy MD [address] [place], [place] [phone] 11/14/2024 Israel Godoy Encounter for administration of [...] Details Provider Name:Israel grider, 01/12/2025 09:00:00 AM, [address] [place] [address], [address], [phone], Provider Name:Israel grider, 07/06/2025 07:15:00 AM, [address] [place] [address], [address], [phone], Provider Name:Israel grider, 07/13/2025 09:30:00 AM, [address] [place] [address], [address] [place] [address], [phone], Progress Notes * Kevin NEIL PDOB:[birth year] (79 yo M)Acc No.[id number]:11/14/2024 Progress Notes Patient: Kevin LAW Benji Provider: Arturo Godoy MD :1945 A ge:79 Y S ex:Male Date:11/14/2024 Address:[address] [place], [place] [phone] Subjective: * Chief Complaints: * S cabies [...] 9 0662 FLU VACC PRSV FREE INC [id number] ADMN FLU VAC NO FEE SCHED SAME DAY * Preventive Medicine: Immunizations: I nfluenza H ave you had a flu shot since the most recent November 03? Y es. * * Sign off status: Completed true * Provider: Arturo Godoy MD Date: 0 11/14/2024 Generated for Latha juarez/Jim/Tgitting on: 06:19 PM EDT History and Physical [...]
[2024-12-31 15:01] LABS: Hematocrit 41.0 % (42.0-52.0); Hemoglobin 13.6 g/dl (14.0-18.0); Imm Gran Abs Auto 0.05 X10*3/uL (0.00-0.03); Imm Gran Pct Auto 0.4 % (0.0-0.4); Lymphocytes Absolute Auto 0.8 X10*3/uL (1.2-4.9); MANUAL DIFF FLAG SCAN; Mean Corpuscular HGB Conc 33.2 g/dl (31.0-36.0); Mean Corpuscular Hemoglobin 31.3 pg (27.0-33.0); Mean Corpuscular Volume 94.5 fL (80.0-98.0); NRBC Abs Auto 0.000 X10*3/uL (0.0-0.012); NRBC Pct Auto 0.0 /100WBC (0.0-0.2); Platelet Count 165 X10*3/uL (160-400); Red Blood Count 4.34 X10*6/uL (4.60-5.80); SCAN SMEAR FLAG 1; White Blood Count 11.8 X10*3/uL (4.8-10.8)
[2024-12-31 15:40] LABS: Alanine Aminotransferase 21 U/L (0-40); Albumin Level 4.4 g/dL (3.5-5.0); Alkaline Phosphatase 69 U/L (39-117); Anion Gap 11 (12-20); Aspartate Amino Transferase 35 U/L (5-37); Blood Urea Nitrogen 19 mg/dL (9-16); Calcium 9.4 mg/dL (8.4-10.2); Carbon Dioxide 29 mmol/L (22-29); Chloride 99 mmol/L (96-108); Estimated Glomerular Filt Rate > 60; Potassium 4.3 mmol/L (3.3-5.1); Sodium 135 mmol/L (135-145); Total Protein 7.9 g/dL (6.5-8.0)
--- OUTSIDE RECORDS SUMMARY | 2024-12-31 18:20 | XMS_ITS | Patient Health Record ---
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 Name Role Phone Israel Godoy MD Primary Care Provider Mike Maldonado Unavailable [phone] Allergies Allergen (clinical drug ingredient) Drug/Non Drug [...] Status Risk Notes Problem Colon cancer screening (112991953) Colon cancer screening (V76.51) Active confirmed Problem Clostridium difficile colitis (167299404) Clostridium difficile colitis (008.45) Active confirmed Problem History of adenomatous polyp of colon (837586319) History of adenomatous polyp of colon (V12.72) Active confirmed Plan Of Treatment Future Test Test Name Order Date COLONOSCOPY 12/21/2011 Insurance Providers Payer Name Payer Address Payer Phone Subscriber Number Group Number Insured Name Patient Relationship to Insured Coverage Start Date Coverage End Date MEDICARE OF [place] [address] [place] [address] [phone] [id number] MIKE BRADLEY Self - patient is the insured [facility] [address] [place] [address] [id number] MIKE BRADLEY Self - patient is the insured Medical (General) History Medical History History ICD Code colonoscopy 08-29-2006 with removal of a tubular adenoma ulcer disease in the 1970's prostatitis kidney stones Denies UT,DM,CVA,Lung disease,renal dise ase Cdiff in Spring 2011 in relation to Clin damycin Surgical History Surgery Date(Month/Year) tonsillectomy
--- OUTSIDE RECORDS SUMMARY | 2024-12-31 18:21 | XMS_ITS | Patient Health Record ---
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, [address] [place] [phone] Notes/Report: Blood Urea Nitrogen 12 9-16 mg/dL Creatinine Reviewed date:01/11/2024 12:35:49 PM Interpretation: Performing Lab:[facility], [address] [phone] Notes/Report: Creatinine 0.85 0.5-1.4 mg/dL Estimated Glomerular Filt Rate > 60 NOTE: For -Swedish individuals, multiply the result by 1.210. Chronic Kidney Disease: Estimated GFR < 60 mL/min/1.73m2 Severe Kidney Disease: Estimated GFR < 15 mL/min/1.73m2 Complete Blood Count Auto Di ff Reviewed date:07/03/2024 04:58:58 PM Interpretation: Performing Lab:[address] [phone] Notes/Report: White Blood Count 4.8 4.8-10.8 X10*3/uL [...] NRBC Abs Auto 0.000 0.0-0.012 X10*3/uL Comprehensive [place]. Panel Fa st Reviewed date:07/03/2024 05:03:37 PM Interpretation: Performing Lab:[facility], [address] [phone] Notes/Report: Sodium 134 135-145 mmol/L Potassium 4.0 [...] Panel Reviewed date:07/03/2024 04:47:31 PM Interpretation: Performing Lab:[address] [phone] Notes/Report: Triglycerides 53 <150 mg/dL Desirable Triglyceride: [...] (Free>4and<10) Reviewed date:07/03/2024 04:48:34 PM Interpretation: Performing Lab:[address] [phone] Notes/Report: PSA,Total (Free>4and<10) 0.40 0.00-4.00 ng/mL A [...] between 4.0 and 10.0 ng/mL. PSA methodology: [employer] i Chemiluminescent Microparticle Immunoassay (CMIA) UA ClnCatch+Micro w/rflx Cul t Reviewed date:07/03/2024 05:00:22 PM Interpretation: Performing Lab:[address] [phone] Notes/Report: Urine, Clean Catch Color Urine Yellow Appearance Urine Clear PH 7.0 5.0-9.0 Glucose Urine UA Negative Negative mg/dL Urine Blood Negative Negative Specific [place] - Urine 1.015 1.005-1.025 Urine Protein Negative Neg-Trace mg/dL Urine Ketones Negative Negative mg/dL Nitrite Urine Negative Negative Leukocyte Esterase Urine Negative Negative RBC Urine 0-2 0-2 /HPF WBC Urine 0-5 0-5 /HPF Squamous Epithelial Cell Urine 0-2 0-2 /HPF Bacteria Urine None Seen None Seen Hyaline Casts Urine 0-2 0-2 /LPF Urinalysis and Microscopic Reviewed date:01/10/2024 04:44:43 PM Interpretation: Performing Lab:[address] [phone] Notes/Report: Color Urine Yellow Appearance Urine Clear PH 5.5 5.0-9.0 Glucose Urine UA Negative Negative mg/dL Urine Blood Negative Negative Specific [place] - Urine <= 1.005 1.005-1.025 Urine Protein Negative Neg-Trace mg/dL Urine Ketones Negative Negative mg/dL Nitrite Urine Negative Negative Leukocyte Esterase Urine Negative Negative RBC Urine 0-2 0-2 /HPF WBC Urine 0-5 0-5 /HPF Squamous Epithelial Cell Urine 0-2 0-2 /HPF Bacteria Urine None Seen None Seen Hyaline Casts Urine 0-2 0-2 /LPF Urine Culture Reviewed date:01/11/2024 01:03:29 PM Interpretation: Performing Lab:[facility], [address] [phone] Notes/Report: Urine Culture No growth. Occult Blood, [...] High Dose Unknown 11/17/2023 Administered [facility] SARS-COV-2 [facility] Unknown 11/17/2023 Administered [facility] Influenza High Dose [...] Problem Status W/U Status Risk Notes Problem 684457882 Thrombocytopenia (D69.6) Active confirmed Problem 52807022 Prostatism (N40.0) Active confirmed Problem Essential hypertension (17469002) Essential (primary) hypertension (I10) Active confirmed Problem 640230317 Tubular adenoma of colon (D12.6) Active confirmed Problem 501584668 Gastroesophageal reflux disease with esophagitis (K21.00) Active confirmed Problem 41618867 Heart murmur (R01.1) Active confirmed Problem 15257080 Monocytosis (D72.821) Active confirmed Problem 256653166173172 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) Active confirmed Problem 967712932 Pure hypercholesterolemia (E78.00) Active confirmed Problem 50328592 TETE (obstructive sleep apnea) (G47.33) Active confirmed Problem 463673832 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) Active confirmed Problem 019865595481958 History of Clostridioides difficile colitis (Z86.19) Active confirmed Problem 19752834 New onset atrial fibrillation (I48.91) Active confirmed Problem 67045320 Aortic atheroscl erosis (I70.0) Active confirmed Vital [...] Date Provider Diagnosis Israel Godoy MD [address] [place] [id number] 01/11/2024 Israel Godoy Blood tests prior to treatment or procedure Z01.812 and Lower abdominal pain R10.30 Israel Godoy MD [address] [id number] 07/03/2024 Israel Godoy Pure hypercholestero lemia E78.00 ; Essential (primary) hypertension I10 ; Prostatism N40.0 and Thrombocytopenia D69.6 Israel Godoy MD [address] [place] [id number] 01/10/2024 Israel Godoy Lower abdominal pain R10.30 Israel Godoy MD [address] [place] [address] [id number] 02/14/2024 Israel Godoy Left inguinal hernia K40.90 and Aortic atherosclerosis I70.0 Israel Godoy MD [address] [id number] 07/10/2024 Israel Godoy Monocytosis D72.821 ; Inguinal hernia, left K40.90 ; New onset atrial fibrillation I48.91 ; Essential (primary) hypertension I10 ; Colon cancer screening Z12.11 and Depression screening Z13.31 Israel Godoy MD [address] [place] [id number] 09/29/2024 Israel Godoy Scabies B86 Israel Godoy MD [address] [id number] 11/14/2024 Israel Godoy Encounter for administration of vaccine Z23 and Eczema L30.9 Assessments Encounter Date Diagnosis (ICD Code) Assessment Notes Treatment Notes Treatment Clinical Notes Section Notes 01/11/2024 Blood tests prior to treatment or procedure (ICD-10 - Z01.812) Patient allergic to IVP dye so [facility] needed a new Order. faxed to [phone] 01/11/2024 Lower abdominal pain (ICD-10 - R10.30) [...] Provider Name:Israel Cortez ier, 01/12/2025 09:00:00 AM, [address] [place] [address], [address], [place], [place], [phone], Provider Name:Israel Cortez ier, 07/06/2025 07:15:00 AM, [address] [place] [address], [address] [facility], [place], [place], [phone], Provider Name:Israel Cortez ier, 07/13/2025 09:30:00 AM, [address] [place] [address], [address], [place], [place], [phone], Insurance Providers Payer Name Payer Address Payer Phone Subscriber Number Group Number Insured Name Patient Relationship to Insured Coverage Start Date Coverage End Date MEDICARE NHIC JAS [address] [place] [address] [id number] Kevin Neil Self - patient is the insured [facility] [address] [place] [phone] [id number] Kevin Neil Self - patient is the insured Medical (General) History Medical History History ICD Code tubular adenoma 2007 colonoscopy 01/17/2012 - rep eat in 5 years; 11/2017 - pt will not do another colonoscopy
== END 2024-12-31 14:13 | disposition home or self-care (01) ==
LOC: HO.LAB 14:12
PROVIDERS: PCP Internal Medicine; Visit Provider Dermatology
DX: L30.9 Dermatitis, unspecified (principal)
CPT/HCPCS: 36415; 80053; 85025